=== PATIENT | male | born 1940 | race Caucasian/White ===

== ENCOUNTER 2019-03-30 08:16 | Outpatient (CLI) | payer OTHER, SELFPAY ==
--- NOTE | ~2019-03-30 | CT_ITS ---
EXAMINATION: CT chest w con DATE: 03/30/2019 09:23 INDICATION: Cancer of the lower lobe of the right lung, chest pain, cough TECHNIQUE: Transaxial computed tomographic images of the chest were obtained after the administration of 75 cc of Omnipaque 350 intravenous contrast. The dose-length product (DLP) was 333.68 mGy-cm. Ite rative reconstruction was used. COMPARISON: 09/15/2018, 10/21/2017 FINDINGS: There is mild emphysema. Postsurgical changes of right lower lobectomy are again noted. No suspicious pulmonary nodule is identified. There is a small area of unchanged scarring in the right l swathi apex. A calcified nodule of the left lung apex is consistent with old granulomatous disease. No p athologically enlarged thoracic lymph nodes are identified. The heart size is normal. There are beltrán es of coronary artery bypass grafting. There is moderate thoracic spondylosis. IMPRESSION: 1. Changes of right lower lobectomy without evidence of recurrent or metastatic disease. 2. Mild emphysema. Reviewed, dictated and finalized at location A. ITY HAND
[2019-03-30 09:15] LABS: Blood Urea Nitrogen 19 mg/dL (8-26); Estimated Glomerular Filt Rate > 60
== END 2019-03-30 08:17 | disposition home or self-care (01) ==
PROVIDERS: PCP Internal Medicine; Visit Provider Internal Medicine Hematology & Oncology
DX: C34.31 Malignant neoplasm of lower lobe, right bronchus or lung (principal); Z90.2 Acquired absence of lung [part of]; J43.9 Emphysema, unspecified
CPT/HCPCS: 71260; Q9967

== ENCOUNTER 2019-04-15 09:43 | Outpatient (CLI) | payer OTHER, SELFPAY ==
[2019-04-15 10:03] LABS: Basophils Absolute Auto 0.1 K/mm3 (0.0-0.1); Basophils Percent Auto 0.7 % (0.2-1.2); Eosinophils Absolute Auto 0.2 K/mm3 (0-0.3); Eosinophils Percent Auto 1.8 % (0-4.4); Hematocrit 40.6 % (42.0-52.0); Hemoglobin 13.3 g/dL (14.0-18.0); Immature Granulocyte Absolute 0.03 K/mm3 (0.00-0.031); Immature Granulocyte Percent A 0.4 % (0-0.5); Lymphocytes Absolute Auto 1.69 K/mm3 (0.9-3.2); Lymphocytes Percent Auto 20.4 % (18.3-44.2); Mean Corpuscular HGB Conc 32.8 g/dl (32-36); Mean Corpuscular Hemoglobin 31.1 pg (26-34); Mean Corpuscular Volume 95.1 fl (80-100); Mean Platelet Volume 9.5 fl (7.4-10.4); Monocytes Absolute Auto 0.6 K/mm3 (0.1-0.6); Neutrophils Absolute Auto 5.8 K/mm3 (1.3-6.7); Neutrophils Percent Auto 69.7 % (45.5-73.1); Platelet Count Result 215 k/mm3 (150-375); Red Blood Count 4.27 M/mm3 (4.6-6.20); Red Cell Distribution Width 12.8 % (11.5-14.5); White Blood Count 8.3 K/mm3 (4.5-10.0)
[2019-04-15 10:11] LABS: Blood Urea Nitrogen 18 mg/dL (8-26); Carbon Dioxide 28 mmol/L (22-30); Chloride 103 mmol/L (98-109); Estimated Glomerular Filt Rate > 60; Glucose 69 mg/dL (70-105); Potassium 4.2 mmol/L (3.5-4.9); Sodium 139 mmol/L (138-146)
[2019-04-15 12:24] LABS: Alanine Aminotransferase 16 U/L (4-50); Albumin Level 4.6 g/dL (3.5-5.1); Alkaline Phosphatase 103 U/L (38-126); Aspartate Amino Transferase 20 U/L (17-59); Bilirubin,Total 0.5 mg/dL (0.2-1.3); Blood Urea Nitrogen 18 mg/dL (9-20); Calcium 9.4 mg/dL (8.4-10.2); Carbon Dioxide 24 mmol/L (22-30); Chloride 98 mmol/L (98-107); Estimated Glomerular Filt Rate > 60; Glucose 67 mg/dL (75-110); Potassium 4.4 mmol/L (3.4-5.0); Sodium 140 mmol/L (137-145)
== END 2019-04-15 09:44 | disposition home or self-care (01) ==
LOC: ANHLAB 09:45
PROVIDERS: PCP Internal Medicine; Visit Provider Internal Medicine Hematology & Oncology
DX: C34.31 Malignant neoplasm of lower lobe, right bronchus or lung (principal)
CPT/HCPCS: 36415; 80048; 80053; 85025

== ENCOUNTER 2019-08-13 10:14 | Outpatient (CLI) | payer OTHER, SELFPAY ==
--- NOTE | ~2019-08-13 | MR_ITS ---
EXAMINATION: MR brain/brain stem wo con EXAM DATE: 08/13/2019 11:22 INDICATION: Dementia, alteration of awareness. TECHNIQUE: Magnetic resonance imaging (MRI) of the brain/brain stem obtained without contrast. Sagitt al T1, axial diffusion, gradient echo (T2*), T1, T2, FLAIR sequences obtained. Correlation was made with a head CT from 01/18/2018. FINDINGS: There are no areas of restricted diffusion to suggest acute infarction. There is no acute hemorrhage seen on the T2*, a hemosiderin sensitive sequence. No intraparenchymal brain mass lesion. There is mild to moderate periventricular and subcortical T2/FLAIR signal hyperintensity, nonspecifi c but probably related to small vessel ischemic disease (microangiopathy). There is mild to moderat e prominence of the sulci and ventricles related to cerebral atrophy. There are no extra-axial brandy ections. Flow voids are seen in the cerebral arteries on the T2-weighted sequences consistent with t heir expected patency. Patient has had bilateral ocular lens surgery. Soft tissue is unremarkable. Opacified right maxillary sinus with wall thickening, unchanged compared to a head CT from 2018. IMPRESSION: 1. No acute intracranial findings. 2. Chronic age related findings. Reviewed, dictated and finalized at location B.
== END 2019-08-13 10:15 | disposition home or self-care (01) ==
PROVIDERS: PCP Internal Medicine; Visit Provider Psychiatry & Neurology Neurology
DX: F03.90 Unspecified dementia, unspecified severity, without behavioral disturbance, psychotic disturbance, mood disturbance, and anxiety (principal)
CPT/HCPCS: 70551

== ENCOUNTER 2019-10-07 10:25 | Outpatient (CLI) | payer OTHER, SELFPAY ==
[2019-10-07 10:38] LABS: Basophils Percent Auto 0.6 % (0.2-1.2); Eosinophils Absolute Auto 0.1 K/mm3 (0-0.3); Eosinophils Percent Auto 2.1 % (0-4.4); Hematocrit 38.3 % (42.0-52.0); Hemoglobin 12.8 g/dL (14.0-18.0); Immature Granulocyte Absolute 0.02 K/mm3 (0.00-0.031); Immature Granulocyte Percent A 0.3 % (0-0.5); Lymphocytes Absolute Auto 1.27 K/mm3 (0.9-3.2); Lymphocytes Percent Auto 20.6 % (18.3-44.2); Mean Corpuscular HGB Conc 33.4 g/dl (32-36); Mean Corpuscular Hemoglobin 31.3 pg (26-34); Mean Corpuscular Volume 93.6 fl (80-100); Mean Platelet Volume 8.9 fl (7.4-10.4); Monocytes Absolute Auto 0.4 K/mm3 (0.1-0.6); Neutrophils Absolute Auto 4.3 K/mm3 (1.3-6.7); Neutrophils Percent Auto 69.4 % (45.5-73.1); Platelet Count Result 208 k/mm3 (150-375); Red Blood Count 4.09 M/mm3 (4.6-6.20); Red Cell Distribution Width 12.8 % (11.5-14.5); White Blood Count 6.2 K/mm3 (4.5-10.0)
[2019-10-07 10:42] LABS: Blood Urea Nitrogen 16 mg/dL (8-26); Carbon Dioxide 27 mmol/L (22-30); Chloride 100 mmol/L (98-109); Estimated Glomerular Filt Rate 58; Glucose 143 mg/dL (70-105); Potassium 4.1 mmol/L (3.5-4.9); Sodium 142 mmol/L (138-146)
[2019-10-07 12:04] LABS: Alanine Aminotransferase 14 U/L (4-50); Albumin Level 4.7 g/dL (3.5-5.1); Alkaline Phosphatase 114 U/L (38-126); Anion Gap 13 mmol/L (8-16); Aspartate Amino Transferase 20 U/L (17-59); Bilirubin,Total 0.3 mg/dL (0.2-1.3); Blood Urea Nitrogen 16 mg/dL (9-20); Calcium 9.7 mg/dL (8.4-10.2); Carbon Dioxide 26 mmol/L (22-30); Chloride 101 mmol/L (98-107); Estimated Glomerular Filt Rate > 60; Glucose 146 mg/dL (75-110); Potassium 4.2 mmol/L (3.4-5.0); Sodium 140 mmol/L (137-145)
[2019-10-08 12:09] LABS: Iron 93 ug/dL (49-181)
[2019-10-08 12:18] LABS: Percent Iron Saturation 24 % (20-50)
== END 2019-10-07 10:26 | disposition home or self-care (01) ==
PROVIDERS: PCP Internal Medicine; Visit Provider Internal Medicine Hematology & Oncology
DX: C34.31 Malignant neoplasm of lower lobe, right bronchus or lung (principal)
CPT/HCPCS: 36415; 80048; 80053; 82728; 83540; 83550; 85025

== ENCOUNTER 2020-03-28 08:32 | Outpatient (CLI) | payer OTHER, SELFPAY ==
--- NOTE | ~2020-03-28 | CT_ITS ---
EXAMINATION: CT diagnostic chest w con DATE: 03/28/2020 09:30 INDICATION: Malignant neoplasm of the lower lobe of the right lung TECHNIQUE: Transaxial computed tomographic images of the chest were obtained after the administration of 75 cc of Omnipaque 350 intravenous contrast. The dose-length product (DLP) was 200.43 mGy-cm. Ite rative reconstruction was used. COMPARISON: 03/30/2019, 09/15/2018 FINDINGS: There is mild emphysema. Changes of right lower lobectomy are again noted. A small stable a azael of scarring is present in the right lung apex. A calcified nodule of the left lung apex is consis tent with old granulomatous disease. No new pulmonary nodule is identified. The lungs are free of acu te opacities. There is no pleural effusion or pneumothorax. No pathologically enlarged thoracic lymph nodes are identified. The heart size is normal. Changes of coronary artery bypass grafting are noted . There is moderate thoracic spondylosis. IMPRESSION: 1. Stable changes of right lower lobectomy without evidence of recurrent or metastatic disease. 2. Mild emphysema. Reviewed, dictated and finalized at location A. TION PROGRAM MANAGER IMPRESSION: 1. Stable changes of right lower lobectomy without evidence of recurrent or met astatic disease. 2. Mild emphysema.
[2020-03-28 09:25] LABS: Estimated Glomerular Filt Rate > 60
== END 2020-03-28 08:33 | disposition home or self-care (01) ==
PROVIDERS: PCP Internal Medicine; Visit Provider Nurse Practitioner Adult Health
DX: C34.31 Malignant neoplasm of lower lobe, right bronchus or lung (principal); J43.9 Emphysema, unspecified
CPT/HCPCS: 71260; Q9967

== ENCOUNTER 2020-04-06 09:57 | Outpatient (CLI) | payer OTHER, SELFPAY ==
[2020-04-06 10:17] LABS: Basophils Percent Auto 0.4 % (0.2-1.2); Eosinophils Absolute Auto 0.1 K/mm3 (0-0.3); Eosinophils Percent Auto 1.9 % (0-4.4); Hematocrit 39.7 % (42.0-52.0); Immature Granulocyte Absolute 0.02 K/mm3 (0.00-0.031); Immature Granulocyte Percent A 0.3 % (0-0.5); Lymphocytes Absolute Auto 1.37 K/mm3 (0.9-3.2); Lymphocytes Percent Auto 18.7 % (18.3-44.2); Mean Corpuscular HGB Conc 32.7 g/dl (32-36); Mean Corpuscular Hemoglobin 30.5 pg (26-34); Mean Corpuscular Volume 93.2 fl (80-100); Mean Platelet Volume 9.4 fl (7.4-10.4); Monocytes Absolute Auto 0.6 K/mm3 (0.1-0.6); Monocytes Percent Auto 7.8 % (2.6-8.5); Neutrophils Absolute Auto 5.2 K/mm3 (1.3-6.7); Neutrophils Percent Auto 70.9 % (45.5-73.1); Platelet Count Result 220 k/mm3 (150-375); Red Blood Count 4.26 M/mm3 (4.6-6.20); Red Cell Distribution Width 12.7 % (11.5-14.5); White Blood Count 7.3 K/mm3 (4.5-10.0)
[2020-04-06 10:20] LABS: Blood Urea Nitrogen 13 mg/dL (8-26); Carbon Dioxide 28 mmol/L (22-30); Chloride 100 mmol/L (98-109); Estimated Glomerular Filt Rate 58; Glucose 154 mg/dL (70-105); Potassium 4.5 mmol/L (3.5-4.9); Sodium 138 mmol/L (138-146)
[2020-04-06 13:14] LABS: Iron 78 ug/dL (49-181)
[2020-04-06 13:17] LABS: Alanine Aminotransferase 13 U/L (4-50); Albumin Level 4.4 g/dL (3.5-5.1); Alkaline Phosphatase 143 U/L (38-126); Anion Gap 13 mmol/L (8-16); Aspartate Amino Transferase 19 U/L (17-59); Bilirubin,Total 0.5 mg/dL (0.2-1.3); Blood Urea Nitrogen 14 mg/dL (9-20); Calcium 9.5 mg/dL (8.4-10.2); Carbon Dioxide 26 mmol/L (22-30); Chloride 100 mmol/L (98-107); Estimated Glomerular Filt Rate > 60; Glucose 155 mg/dL (75-110); Potassium 4.6 mmol/L (3.4-5.0); Sodium 139 mmol/L (137-145)
[2020-04-06 13:24] LABS: Percent Iron Saturation 20 % (20-50)
[2020-04-06 14:21] LABS: Folic Acid 14.9 ng/mL (2.76->20)
[2020-04-09 15:11] LABS: Methylmalonic Acid 148 nmol/L (87-318)
== END 2020-04-06 09:58 | disposition home or self-care (01) ==
LOC: ANHLAB 09:58
PROVIDERS: PCP Internal Medicine; Visit Provider Internal Medicine Hematology & Oncology
DX: C34.31 Malignant neoplasm of lower lobe, right bronchus or lung (principal); D64.9 Anemia, unspecified
CPT/HCPCS: 36415; 80048; 80053; 82607; 82746; 83540; 83550; 83921; 85025

== ENCOUNTER 2021-01-31 12:34 | Outpatient (CLI) | payer OTHER, SELFPAY ==
--- NOTE | ~2021-01-31 | XR_ITS ---
XR shoulder RT min 2V 01/31/2021 13:01 Indication: Shoulder pain Procedure: 4 views right shoulder Comparison: No prior studies for comparison. Findings: There is mild polyarticular osteoarthritis of the right shoulder. No fracture or traumatic malalignment. Surrounding osseous structures and soft tissues are unremarkable. Impression: 1: Mild osteoarthritis of the right shoulder. Reviewed, dictated and finalized at location A. ALS INTELLIGENCE ANALYSIS MANAGER Impression: 1: Mild osteoarthritis of the right shoulder.
--- NOTE | ~2021-01-31 | XR_ITS ---
XR shoulder LT min 2V 01/31/2021 13:02 Indication: Left shoulder pain Procedure: 4 views left shoulder Comparison: No prior studies for comparison. Findings: There is advanced glenohumeral joint osteoarthritis. Mild acromioclavicular osteoarthritis. There are calcified granulomas of the lung parenchyma. No acute fracture or traumatic malalignment. Small ossific projection adjacent to the greater tuberosity, likely sequela of calcific tendinopathy. Impression: 1: Mild-moderate polyarticular osteoarthritis of the left shoulder. Reviewed, dictated and finalized at location A. TECHNICIAN Impression: 1: Mild-moderate polyarticular osteoarthritis of the left shoulder.
== END 2021-01-31 12:35 | disposition home or self-care (01) ==
LOC: CHSIMG 12:37
PROVIDERS: PCP Nurse Practitioner Family; Visit Provider Nurse Practitioner Family
DX: M25.511 Pain in right shoulder (principal); M25.512 Pain in left shoulder
CPT/HCPCS: 73030

== ENCOUNTER 2021-05-31 11:42 | Outpatient (NON) | payer OTHER, SELFPAY ==
[2021-05-31 11:58] LABS: Basophils Absolute Auto 0.06 K/mm3 (0.00-0.10); Basophils Percent Auto 0.6 % (0.0-1.0); Eosinophils Absolute Auto 0.22 K/mm3 (0.02-0.50); Eosinophils Percent Auto 2.3 % (1.0-6.0); Hematocrit 39.5 % (37.0-46.0); Hemoglobin 12.9 g/dL (12.4-15.3); Immature Granulocyte Absolute 0.04 K/mm3 (0.00-0.00); Immature Granulocyte Percent A 0.4 % (0.0-0.0); Lymphocytes Percent Auto 13.6 % (18.0-42.0); Mean Corpuscular HGB Conc 32.7 g/dL (32.0-36.0); Mean Corpuscular Hemoglobin 32.5 pg (27.0-31.0); Mean Corpuscular Volume 99.5 fL (78.0-102.0); Mean Platelet Volume 11.6 fl (8.7-11.0); Monocytes Absolute Auto 0.86 K/mm3 (0.10-0.90); Neutrophils Absolute Auto 7.1 K/mm3 (1.7-7.2); Neutrophils Percent Auto 74.1 % (50.0-70.0); Platelet Count Result 225 K/mm3 (150-420); Red Blood Count 3.97 M/mm3 (4.70-6.10); Red Cell Distribution Width 13.8 % (11.6-14.4); White Blood Count 9.6 K/mm3 (4.8-10.8)
[2021-05-31 13:14] LABS: Alanine Aminotransferase 17 U/L (16-63); Albumin Level 4.2 g/dL (3.4-5.0); Alkaline Phosphatase 139 U/L (46-116); Anion Gap 16 mmol/L (8-16); Aspartate Amino Transferase 13 U/L (15-37); Bilirubin,Total 0.4 mg/dL (0.00-1.00); Blood Urea Nitrogen 18 mg/dL (7-18); Calcium 9.3 mg/dL (8.5-10.1); Carbon Dioxide 24 mmol/L (21-32); Chloride 99 mmol/L (98-108); Estimated Glomerular Filt Rate > 60; Glucose 125 mg/dL (70-99); Osmolality Calculated 290 mOsm/kg (285-295); Potassium 4.6 mmol/L (3.5-5.1); Sodium 139 mmol/L (136-145); Total Protein 7.6 g/dL (6.4-8.2); Vitamin B12 908 pg/mL (193-986)
[2021-05-31 13:17] LABS: Magnesium 0.9 mg/dL (1.8-2.4)
[2021-06-05 18:03] LABS: Vitamin D 25 Hydroxy 30 ng/mL (30-100)
== END 2021-05-31 11:43 | disposition home or self-care (01) ==
LOC: CHSLAB 11:44
PROVIDERS: Visit Provider Nurse Practitioner Family
DX: R41.0 Disorientation, unspecified (principal); Z79.899 Other long term (current) drug therapy
CPT/HCPCS: 36415; 80053; 82306; 82607; 83735; 85025

== ENCOUNTER 2021-05-31 14:12 | Observation (INO) | payer OTHER, SELFPAY ==
[2021-05-31] VITALS (25 sets, daily range): BP systolic 90–138; BP diastolic 54–84; PULSE 80–114; RESP 16–18; TEMP 36.4; O2SAT 95–100; BMI 20.4
--- NOTE | ~2021-05-31 | MR_ITS ---
EXAMINATION: MR brain/brain stem wo con DATE: 06/02/2021 11:36 INDICATION: Stroke. Confusion. TECHNIQUE: Magnetic resonance imaging (MRI) of the brain and brainstem was performed without intraven ous contrast. COMPARISON: Brain MRI 08/13/2019, head CT 05/31/2021 FINDINGS: There are scattered areas of nonspecific increased T2-weighted signal intensity in the cere bral white matter and michael. There is no intracranial hemorrhage, acute infarction, or abnormal intrac ranial mass lesion. The ventricles are normal in size. There are likely changes of ocular lens replac ement surgeries. There is mucosal thickening in the paranasal sinuses including complete opacificatio n of right maxillary sinus, which is small with thickened maurer, consistent with chronic sinusitis. T he mastoid air cells are normal. IMPRESSION: 1. Stable moderate nonspecific cerebral white matter disease and pontine disease, which likely repres ents chronic small vessel ischemic disease. 2. Chronic sinusitis. Reviewed, dictated and finalized at location A. IMPRESSION: 1. Stable moderate nonspecific cerebral white matter disease and pontine diseas e, which likely represents chronic small vessel ischemic disease. 2. Chronic sinusitis.
--- NOTE | ~2021-05-31 | MR_ITS ---
EXAMINATION: MR cervical spine wo con EXAM DATE: 06/05/2021 12:19 INDICATION: Left-sided weakness. TECHNIQUE: Multi-sequential, multiplanar MR images of the cervical spine were obtained without contra st. Sagittal T1, T2, T2 fat saturation images obtained. Patient reportedly declined holding still for examination. Study is limited due to patient motion. There is no prior study for comparison. FINDINGS: There is moderate disc disease C3-4, 5-6 and 6-7, mild to moderate at C4-5. The vertebral b odies are aligned in the AP dimension. Small to moderate-sized disc bulges from C3 through C7. At the C3-4 level being slightly indented from posterior element hypertrophy and disc bulge, central canal appears to be narrowed to 5-6 mm in mid sagittal AP diameter, mild to moderate stenosis. There is no suspicion of cord edema. This is most narrowed level. There could be substantial multilevel neural fo raminal stenosis. Cervicomedullary junction is normal in appearance. There are no suspicious marrow s ignal abnormalities. The vertebral bodies are aligned in the AP dimension. IMPRESSION: 1. C3-4 mild to moderate central canal stenosis, cord slightly indented but no edema, no acute compr ession. 2. Limited exam, probable substantial neural foraminal stenosis. Reviewed, dictated and finalized at location A. IMPRESSION: 1. C3-4 mild to moderate central canal stenosis, cord slightly indented but no edema, no acute compression. 2. Limited exam, probable substantial neural foraminal stenosis.
--- NOTE | ~2021-05-31 | XR_ITS ---
EXAMINATION: XR chest 1V portable DATE: 06/02/2021 09:10 INDICATION: Cough. TECHNIQUE: A single frontal view of the chest was obtained on 2 radiographs. COMPARISON: Chest single view 01/18/2018, chest CT 03/28/2020 FINDINGS: There is volume loss of right lung from right lower lobectomy. Calcified pulmonary nodules are consistent with old granulomatous disease. Skinfolds overlie left hemithorax. There are lucencies in the lungs, consistent with emphysema. There is mild atelectasis at right lung base. No pleural ef fusion or pneumothorax. The heart size is normal. Median sternotomy wires and mediastinal surgical cl ips are seen, likely from prior coronary artery bypass grafting. IMPRESSION: 1. Worsened mild atelectasis at right lung base. 2. Emphysema. Reviewed, dictated and finalized at location A.
--- NOTE | ~2021-05-31 | CT_ITS ---
EXAMINATION: CT brain wo con DATE: 05/31/2021 15:08 INDICATION: Frequent falls. Confusion. TECHNIQUE: Computed tomography (CT) of the head was performed without intravenous contrast. The mA wa s adjusted according to patient size. Iterative reconstruction technique was employed. Exam dose: 13 62.00 mGy-cm total exam DLP. COMPARISON: 08/13/2019 MRI brain/brainstem 01/18/2018 CT brain FINDINGS: The examination is limited by motion artifact. There is calcified cerebral atherosclerosis. There is nonspecific diminished attenuation of the cereb ral white matter, likely due to chronic small vessel ischemic changes. No intracranial mass lesion or hemorrhage or recent cerebrovascular accident is detected. No midline shift or mass effects. Moderate cerebellar and cerebral volume loss. No subdural or epidural hematoma. The right maxillary sinus is completely opacified. The paranasal sinuses and mastoid air cells are ot herwise unremarkable. No fracture or bone destruction of the cranial vault is evident. IMPRESSION: Opacified right maxillary sinus Cerebellar and cerebral volume loss Cerebral atherosclerosis and chronic small vessel ischemic changes of the cerebral white matter No acute intracranial finding Reviewed, dictated and finalized at Location A. Reviewed, dictated and finalized at location A. IMPRESSION: Opacified right maxillary sinus Cerebellar and cerebral volume loss Cerebral atherosclerosis and chronic small vessel ischemic changes of the cereb ral white matter No acute intracranial finding
--- NOTE | 2021-05-31 14:22 | ECG_ITS ---
Measurements Intervals [place] Rate: 96 P: 83 WI: 143 QRS: 69 QRSD: 103 T: 89 QT: 345 QTc: 438 Interpretive Statements SINUS RHYTHM WITH OCCASIONAL PREMATURE VENTRICULAR COMPLEXES INTRAVENTRICULAR CONDUCTION DELAY NONSPECIFIC ST AND T-WAVE ABNORMALITY ABNORMAL ECG NO PREVIOUS ECG AVAILABLE FOR COMPARISON Electronically Signed On 05-31-2021 16:40:38 CDT by Pierre Goodman M.D.
[2021-05-31 14:49] LABS: Basophils Absolute Auto 0.03 K/mm3 (0.00-0.10); Basophils Percent Auto 0.4 % (0.0-1.0); Eosinophils Absolute Auto 0.12 K/mm3 (0.02-0.50); Eosinophils Percent Auto 1.6 % (1.0-6.0); Hematocrit 36.4 % (37.0-46.0); Immature Granulocyte Absolute 0.03 K/mm3 (0.00-0.00); Immature Granulocyte Percent A 0.4 % (0.0-0.0); Lymphocytes Absolute Auto 1.28 K/mm3 (1.10-4.50); Lymphocytes Percent Auto 17.4 % (18.0-42.0); Mean Corpuscular Hemoglobin 32.6 pg (27.0-31.0); Mean Corpuscular Volume 98.9 fL (78.0-102.0); Mean Platelet Volume 9.6 fl (8.7-11.0); Monocytes Absolute Auto 0.77 K/mm3 (0.10-0.90); Monocytes Percent Auto 10.5 % (2.0-11.0); Neutrophils Absolute Auto 5.1 K/mm3 (1.7-7.2); Neutrophils Percent Auto 69.7 % (50.0-70.0); Platelet Count Result 213 K/mm3 (150-420); Red Blood Count 3.68 M/mm3 (4.70-6.10); Red Cell Distribution Width 13.7 % (11.6-14.4); White Blood Count 7.4 K/mm3 (4.8-10.8)
--- NOTE | 2021-05-31 14:55 | PC.NURSE ---
Pt off floor to CT scan
[2021-05-31 15:00] LABS: INR 1.1; Partial Thromboplastin Time 26.8 SEC (23.90-30.70)
--- NOTE | 2021-05-31 15:05 | PC.NURSE ---
Pt returned from CT at this time.
[2021-05-31 15:10] LABS: Lactic Acid Reflex 3.2 mmol/L (0.4-2.0)
[2021-05-31 15:11] LABS: Alanine Aminotransferase 16 U/L (16-63); Albumin Level 3.9 g/dL (3.4-5.0); Alkaline Phosphatase 122 U/L (46-116); Anion Gap 14 mmol/L (8-16); Aspartate Amino Transferase 11 U/L (15-37); Bilirubin,Total 0.3 mg/dL (0.00-1.00); Blood Urea Nitrogen 21 mg/dL (7-18); Calcium 9.1 mg/dL (8.5-10.1); Carbon Dioxide 24 mmol/L (21-32); Chloride 99 mmol/L (98-108); Creatine Kinase 34 U/L (39-308); Estimated CRCL calculation 49 ml/min; Estimated Glomerular Filt Rate > 60; Glucose 123 mg/dL (70-99); Osmolality Calculated 288 mOsm/kg (285-295); Potassium 4.3 mmol/L (3.5-5.1); Sodium 137 mmol/L (136-145); Thyroid Stimulating Hormone 0.99 uIU/mL (0.36-3.74); Total Protein 7.4 g/dL (6.4-8.2)
[2021-05-31] MEDS: LORazepam INJ (*CRX) 2 MG/ML VIAL 1 MG IV PUSH ×2 (15:24→15:48)
--- NOTE | 2021-05-31 15:27 | PC.NURSE ---
Pt agitated and aggressive at this time. Kicking, hitting, pinching, yelling at staff with obscenities. MD at bedside, ativan given at this time.
[2021-05-31 15:31] LABS: Magnesium 0.8 mg/dL (1.8-2.4)
--- NOTE | 2021-05-31 15:31 | PC.NURSE ---
Unable to straight cath at this time due to aggressive behavior. aware
--- NOTE | 2021-05-31 15:32 | PC.NURSE ---
Unable to obtain urine sample at this time due to pt's violent behavior. Pt swinging monitoring equipment at staff and attempting to hit, pinch, and kick staff. Pt grabs staff and threatens to break your hands in a million pieces! . Pt cursing at staff, calling us fucking Mexicans and fat wobbly bitches . Pt paranoid and keeps saying staff is in a million dollar operation and trying to kill him. Pt talking to people who are not in the room. Pt medicated per ERP order. Waiting for pt to calm down before attempting to obtain urine again.
--- NOTE | 2021-05-31 15:34 | ED.AMS ---
HPI - Altered Mental Status General Chief Complaint: Altered Mental Status Stated Complaint: amb Time Seen by Provider: 05/31/21 14:35 Source: patient and EMS Mode of arrival: EMS Limitations: altered mental status and dementia History of Present Illness HPI narrative: this an 80-year-old gentleman from [facility] that presents with some altered mental status, agitation with a history of dementia, diabetes. The patient had blood work done which showed that he had abnormally low magnesium level, has a history of dementia with behavioral issues and recently had his Seroquel adjusted. Patient is verbally and physically aggressive kicking and swearing. There is currently no fever chills vital signs are stable denies any chest pain or shortness of breath no abdominal pain. MD complaint: altered mental status and confusion Onset (ago): hour(s) Timing confirmed by: caregiver Severity: moderate Consistency of symptoms: getting Worse Related Data Home Medications Medication Instructions Recorded Confirmed aspirin 81 mg tablet,delayed 81 mg PO DAILY 01/18/19 05/31/21 release nitroglycerin 0.4 mg sublingual 0.4 mg SUBLINGUAL Q5M PRN 01/18/19 05/31/21 tablet divalproex 250 mg PO DAILY 05/31/21 05/31/21 folic acid 1 mg PO DAILY 05/31/21 05/31/21 lisinopril 5 mg PO DAILY 05/31/21 05/31/21 metoprolol succinate 50 mg PO DAILY 05/31/21 quetiapine 25 mg tablet 25 mg PO BID PRN 05/31/21 05/31/21 Allergies Allergy/AdvReac Type Severity Reaction Status Date / Time bacitracin Allergy Unknown Unknown Verified 05/31/21 14:49 baclofen Allergy Unknown Delerium Verified 05/31/21 14:49 benzalkonium chloride Allergy Unknown BLISTERS Verified 05/31/21 14:49 egg Allergy Unknown Unknown Verified 05/31/21 14:49 gramicidin D Allergy Unknown BLISTERS Verified 05/31/21 14:49 hydrocortisone Allergy Unknown BLISTERS Verified 05/31/21 14:49 Penicillins Allergy Unknown Unknown Verified 05/31/21 14:49 polymyxin B Allergy Unknown Unknown Verified 05/31/21 14:49 strawberry Allergy Unknown Unknown Verified 05/31/21 14:49 Sulfa (Sulfonamide Allergy Unknown Unknown Verified 05/31/21 14:49 Antibiotics) BACITRACIN ZINC Allergy Unknown BLISTERS Uncoded 05/31/21 14:49 NEOMYCIN SULFATE Allergy Unknown BLISTERS Uncoded 05/31/21 14:49 POLYMYXIN B SULFATE Allergy Unknown BLISTERS Uncoded 05/31/21 14:49 Contrast Media AdvReac Unknown Nausea, Uncoded 05/31/21 14:49 RETCHING Review of Systems Review of Systems: All systems reviewed & are unremarkable except as noted in HPI and below PMFSH Past Medical History Medical History (Updated 05/31/21 @ 16:05 by Nakul Mendoza MD) Adverse effect due to correct medicinal substance, properly given Alzheimer's dementia 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 Atherosclerosis of coronary artery bypass graft with unstable angina pectoris Atherosclerosis of coronary artery bypass graft(s) without angina pectoris Atherosclerosis of [place] artery of left lower extremity Malignant neoplasm of lower lobe, unspecified bronchus or lung Family History Family History Mother Family history of congenital heart disease Cerebrovascular accident Father Family history of chronic obstructive pulmonary disease Family history of lung cancer Sibling Family history of heart disease in male family member before age 55 Other Asthma Diabetes mellitus Social History Social History Smoking status: Former smoker Second hand tobacco smoke exposure: No Smoking end date: 02/18/08 Alcohol intake: current Drinks per week: 1 Alcohol use details: mixed drinks, rarely Substance use: never Exam Const: General: no acute distress Orientation/consciousness: patient oriented x3 HENMT: Head: normal to inspection Eyes: Conjunctivae: conjunctivae normal Pupils: Equal
--- NOTE | 2021-05-31 15:35 | PC.NURSE ---
This RN called Power of Director, Iman Winters, daughter ([phone]). Originally unable to reach. Spoke with Antonia Smyth, construction code administrator at [facility] ) to confirm patient's code status. Antonia to send [facility] paperwork via fax. OF NOTE -- PER ANTONIA, [facility] WILL NOT ACCEPT PATIENT BACK TO THEIR FACILITY UNTIL CLEARED BY A [facility] SUPERVISING LAW ENFORCEMENT ANALYST. Per Antonia, [facility] is assisted living and does not provide the level of care this patient currently requires. Spoke with Iman Winters ([facility] rey). Confirmed that patient is a DNR. Informed daughter that [facility] will not accept patient back in this condition. Reviewed current plan of care and informed patient will be admitted at [place] for at least one night. Daughter verbalized understanding. Reviewed paperwork regarding code status with Dr Mendoza.
--- NOTE | 2021-05-31 15:52 | PC.NURSE ---
Pt remains agitated, multiple continuous attempts to get OOB. Unable to redirect, remains compative. Additional dose of Ativan administered.
--- NOTE | 2021-05-31 16:20 | PC.NURSE ---
Pt incontinent of urine. Full linen and brief change.
[2021-05-31] MEDS: MAGNESIUM SULF 4 GM/WATER100ML 4 GM/100 ML BAG IVPB (16:23)
--- NOTE | 2021-05-31 16:28 | PC.NURSE ---
Pt straight cath'd for 400 cc clear yellow urine. Some trauma noted to meatus after cath, small amount of blood to tip of penis after catheter removal.
[2021-05-31 16:32] LABS: Add Urine Microscopic? YES; Appearance Urine Clear (Clear); Bilirubin Urine Negative (Negative); Blood Urine 3+ (Negative); Color Urine Light Yellow (Yellow); Glucose Urine UA Negative (Negative); Ketones Urine Negative (Negative); Leukocyte Esterase Ur Negative (Negative); Nitrate Urine Negative (Negative); Protein Urine Negative (Negative); Specific Grav Ur <= 1.005 (1.010-1.020); Urobilinogen Urine 0.2 mg/dL (0.2-1.0)
[2021-05-31 16:35] LABS: Bacteria Urine None seen /hpf; Squamous Epithelial Cell Urine Rare /hpf (Few); WBC Urine None seen /hpf (0-3)
--- NOTE | 2021-05-31 16:35 | PC.NURSE ---
Pt resting comfortably. VSS. Will continue to monitor.
--- NOTE | 2021-05-31 17:06 | PC.NURSE ---
Confirmed with Dr Mendoza. Pt urinalysis clear, WBC WNL. No signs of infection at this time. OK to discontinue levofloxacin
[2021-05-31 17:45] LABS: Reflex Lactic Acid Yes or No Add Lactic
--- NOTE | 2021-05-31 18:03 | ADMGEN ---
This patient, Alec Winters, was admitted to 2nd Floor Room 207-2. Patient/family oriented to hospital policies and general routines including ID bracelet, bed and alarms, visiting hours, pain management, procedures, bathroom and other care routines, personal items, smoking policy, room service/diet, and visiting hours. Reported from er nurse that the [facility] found pt outside attempting to defecate on the sidewalk. At his current state of dementia they will not accept him back until an it administrator has come to evaluate him first. Poa notified of this by er nurse christin. Christin reports he was pleasantly confused until going for a ct/receiving lab draws; after which he became combative. Pt reported to have kicked er nursing staff and twisted wrists. Bed alarms turned on, iv has coban around site, rails up. Pt is drowsy due to medicines given in er, briefly awakens to transfer from stretcher to bed by nurses. Belongings in bags brought up from er. Information on how to activate the Rapid Response Team has been discussed. Patient/Family are encouraged to report perceived risks to care and to ask questions if they do not understand what they are told or what they should do.
[2021-05-31 18:54] LABS: Lactic Acid 1.3 mmol/L (0.4-2.0)
[2021-05-31] MEDS: LORazepam INJ (*CRX) 2 MG/ML VIAL IV PUSH (20:52)
[2021-05-31] MEDS: QUEtiapine FUMARATE 25 MG TABLET PO (20:55)
[2021-06-01 05:31] LABS: Basophils Absolute Auto 0.03 K/mm3 (0.00-0.10); Basophils Percent Auto 0.5 % (0.0-1.0); Eosinophils Absolute Auto 0.15 K/mm3 (0.02-0.50); Eosinophils Percent Auto 2.4 % (1.0-6.0); Hematocrit 35.2 % (37.0-46.0); Hemoglobin 11.5 g/dL (12.4-15.3); Immature Granulocyte Absolute 0.03 K/mm3 (0.00-0.00); Immature Granulocyte Percent A 0.5 % (0.0-0.0); Lymphocytes Absolute Auto 1.13 K/mm3 (1.10-4.50); Lymphocytes Percent Auto 18.3 % (18.0-42.0); Mean Corpuscular HGB Conc 32.7 g/dL (32.0-36.0); Mean Corpuscular Hemoglobin 31.9 pg (27.0-31.0); Mean Corpuscular Volume 97.5 fL (78.0-102.0); Mean Platelet Volume 9.3 fl (8.7-11.0); Monocytes Absolute Auto 0.71 K/mm3 (0.10-0.90); Monocytes Percent Auto 11.5 % (2.0-11.0); Neutrophils Absolute Auto 4.1 K/mm3 (1.7-7.2); Neutrophils Percent Auto 66.8 % (50.0-70.0); Platelet Count Result 188 K/mm3 (150-420); Red Blood Count 3.61 M/mm3 (4.70-6.10); Red Cell Distribution Width 13.5 % (11.6-14.4); White Blood Count 6.2 K/mm3 (4.8-10.8)
[2021-06-01 05:38] LABS: Anion Gap 12 mmol/L (8-16); Blood Urea Nitrogen 15 mg/dL (7-18); Calcium 8.6 mg/dL (8.5-10.1); Carbon Dioxide 27 mmol/L (21-32); Chloride 99 mmol/L (98-108); Estimated CRCL calculation 57 ml/min; Estimated Glomerular Filt Rate > 60; Glucose 102 mg/dL (70-99); Magnesium 1.6 mg/dL (1.8-2.4); Osmolality Calculated 286 mOsm/kg (285-295); Potassium 3.8 mmol/L (3.5-5.1); Sodium 138 mmol/L (136-145)
--- NOTE | 2021-06-01 07:58 | PCPTNOTE ---
06/01/21 - attempted to evaluate patient this morning, but he is not cooperative. he is difficult to understand as he has low speaking volume and runs words together. he is not willing to try to move legs or sit up on the edge of bed this date. suggest patient seek detention home care if cooperation and presentation does not improve. JTF
[2021-06-01 08:00] VITALS: BP 152/73; PULSE 98; RESP 16; TEMP 36.1; O2SAT 99
[2021-06-01] MEDS: LORazepam INJ (*CRX) 2 MG/ML VIAL IV PUSH (08:29)
--- NOTE | 2021-06-01 09:25 | PM.IMHP ---
H&P: HPI History of Present Illness Date/Time: 06/01/21 09:25 This is a 80-year-old male with a past medical history of cardiomyopathy, coronary artery disease, hypertension, diabetes, hyperlipidemia, history of lung cancer in the right lower lobe, had a right lobectomy, status post coronary artery placement with 1 stent in 2012, and angioplasty as well. Patient presented to the emergency room with increased confusion agitation and some hallucinations. Patient lives at assisted living as he had went outside and defecated on the sidewalk patient has had several falls over the past few days. Patient is also seen at the [facility] for his [facility]. Patient's labs ultimately were insignificant except for his magnesium was 0.8. According to medical records after reviewing as patient is unable to give me a good history as he is belligerent he or his cancer is in remission. We will replenish his magnesium and attempt to get him into a psychiatric center [facility] 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 Atherosclerosis of coronary artery bypass graft with unstable angina pectoris Atherosclerosis of coronary artery bypass graft(s) without angina pectoris Atherosclerosis of [place] artery of left lower extremity Malignant neoplasm of lower lobe, unspecified bronchus or lung Family History Family History Mother Family history of congenital heart disease Cerebrovascular accident Father Family history of chronic obstructive pulmonary disease Family history of lung cancer Sibling Family history of heart disease in male family member before age 55 Other Asthma Diabetes mellitus Social History Social History Smoking status: Unknown if ever smoked Second hand tobacco smoke exposure: No Smoking end date: 02/18/08 Alcohol intake: unknown Drinks per week: 1 Alcohol use details: mixed drinks, rarely Substance use: unknown Substance use type: unknown Spiritual care concerns: No Comments At time as signature, I have reviewed and agree with nursing past medical, social, surgical and family history. Please see nursing chart for further information. There is no relevant family history pertinent to the presenting complaint. Meds Home Medications and Allergies Home Medications Medication Instructions Recorded Confirmed Type aspirin 81 mg tablet,delayed 81 mg PO DAILY 01/18/19 05/31/21 History release nitroglycerin 0.4 mg sublingual 0.4 mg SUBLINGUAL Q5M PRN 01/18/19 05/31/21 History tablet atorvastatin 80 mg tablet 80 mg PO DAILY #90 tablet 10/27/19 05/31/21 Rx metformin 500 mg tablet 1,000 mg PO BID #180 tablet 06/30/20 05/31/21 Rx umeclidinium 62.5 mcg-vilanterol 1 inh INHALATION DAILY #60 ea 11/21/20 05/31/21 Rx 25 mcg/actuation powdr for inhalation quetiapine 25 mg tablet 25 mg PO QHS #90 tablet 01/31/21 05/31/21 Rx divalproex 250 mg PO DAILY 05/31/21 05/31/21 History folic acid 1 mg PO DAILY 05/31/21 05/31/21 History lisinopril 5 mg PO DAILY 05/31/21 05/31/21 History metoprolol succinate 50 mg PO DAILY 05/31/21 05/31/21 History quetiapine 25 mg tablet 25 mg PO BID PRN 05/31/21 05/31/21 History Allergies Allergy/AdvReac Type Severity Reaction Status Date / Time bacitracin Allergy Unknown Unknown Verified 05/31/21 14:49 baclofen Allergy Unknown Delerium Verified 05/31/21 14:49 benzalkonium chloride Allergy Unknown BLISTERS Verified 05/31/21 14:49 egg Allergy Unknown Unknown Verified 05/31/21 14:49 gramicidin D Allergy Unknown
[2021-06-01] MEDS: lisinopriL 5 MG TABLET PO (09:38)
[2021-06-01 09:39] VITALS: PULSE 88
[2021-06-01] MEDS: ASPIRIN 81 MG ENTERIC TABLET PO (09:39)
[2021-06-01] MEDS: METOPROLOL SUCCINATE EXT REL 50 MG TABCR PO (09:39)
[2021-06-01] MEDS: DIVALPROEX SODIUM ER 250 MG TAB.24H PO (09:40)
[2021-06-01] MEDS: FOLIC ACID 1 MG TABLET PO (09:40)
[2021-06-01] MEDS: ATORVASTATIN 40 MG TABLET 80 MG PO (09:41)
[2021-06-01 10:05] LABS: Troponin I 8.4 ng/L (0.00-60.4)
[2021-06-01 10:18] LABS: Amphetamine Screen Urine Negative (Negative); Barbiturate Screen Urine Negative (Negative); Benzodiazepines Screen Urine Negative (Negative); Cannabinoid Screen Urine Negative (Negative); Cocaine Screen Urine Negative (Negative); Methadone Screen Urine Negative (Negative); Opiate Screen Urine Negative (Negative); Phencyclidine Screen Urine Negative (Negative)
[2021-06-01 10:55] LABS: SARS-CoV-2 RNA PCR Negative (Negative)
[2021-06-01 11:52] LABS: Glucose Point of Care 99 mg/dl (65-105)
[2021-06-01] MEDS: MAGNESIUM SULF 2 GM/WATER 50ML 2 GM/50 ML BAG 50 GM (13:50)
[2021-06-01] MEDS: MAGNESIUM SULF 2 GM/WATER 50ML 2 GM/50 ML BAG IVPB (13:53)
--- NOTE | 2021-06-01 14:15 | PC.NURSE ---
Addendum entered by Ayde Mckinnon, RN 06/01/21 14:55: Provided # for emergency notification call center to call to ensure hospital receives payment. #[phone] Original Note: [facility]oke [facility]. States that the [facility] cannot take patient due to mag levels and possibility of CA mets to brain. Feel that patient needs further medical work up before can admit to psych facility. [facility]. conference service coordinator and Maureen PANIAGUA notified.
[2021-06-01 15:49] LABS: Magnesium 2.1 mg/dL (1.8-2.4)
[2021-06-01 16:30] VITALS: BP 131/58; PULSE 93; RESP 18; TEMP 36.9; O2SAT 97
--- NOTE | 2021-06-01 18:00 | ECG_ITS ---
Measurements Intervals [place] Rate: 96 P: 80 DC: 149 QRS: 63 QRSD: 88 T: 83 QT: 331 QTc: 419 Interpretive Statements SINUS RHYTHM NONSPECIFIC ST ABNORMALITY BORDERLINE ECG COMPARED TO ECG 05/31/2021 14:50:28 PVCS ARE NO LONGER SEEN Electronically Signed On 06-02-2021 11:38:44 CDT by Pierre Goodman M.D.
[2021-06-01 18:33] LABS: Glucose Point of Care 111 mg/dl (65-105)
[2021-06-01 20:57] LABS: Glucose Point of Care 121 mg/dl (65-105)
[2021-06-01] MEDS: QUEtiapine FUMARATE 25 MG TABLET PO (21:10)
[2021-06-01 23:02] VITALS: BP 149/71; PULSE 97; RESP 24; TEMP 36.6; O2SAT 96
--- NOTE | 2021-06-02 01:10 | PC.NURSE ---
This technical proposal writer attempted to place a pillow under Niles's L side to help prevent a sore and the pt would not allow this intervention to be done. Niles attempted to smack this technical proposal writer and this technical proposal writer had to reorient the pt and explain why it is important to alternating sides. Niles still did not want to cooperate, but was instructed that combativeness is not allowed/okay. Charge nurse was notified of findings.
--- NOTE | 2021-06-02 05:37 | PC.NURSE ---
Pt had an incontinent void. This publicity writer and the charge nurse, Hanna, had removed/changed the pt's depend and cleansed the area with a hygiene wipe. Pt did allow turning in order to clean him, but did not handle it well. Once the pt was returned to supine position he calmed back down showing no agitation. Call light placed within reach; bed alarm and night light on; side rails x3; soiled linens bag removed/replaced.
[2021-06-02 07:22] VITALS: BP 135/71; PULSE 97; RESP 20; TEMP 36.6; O2SAT 96
[2021-06-02 07:35] LABS: Glucose Point of Care 121 mg/dl (65-105)
[2021-06-02] MEDS: ACETAMINOPHEN 325 MG TABLET 650 MG PO (08:19)
[2021-06-02] MEDS: ASPIRIN 81 MG ENTERIC TABLET PO (08:22)
[2021-06-02] MEDS: FOLIC ACID 1 MG TABLET PO (08:22)
[2021-06-02] MEDS: UMECLIDINIUM/VILANTEROL 62.5-25 MCG ELLIPTA 1 PUFF INHALATION (08:22)
[2021-06-02] MEDS: lisinopriL 5 MG TABLET PO (08:26)
[2021-06-02] MEDS: LORazepam INJ (*CRX) 2 MG/ML VIAL IV PUSH (10:51)
--- NOTE | 2021-06-02 11:22 | PM.IMPN ---
Progress Note: A&P Assessment and Plan (1) Hypomagnesemia: Code(s): E83.42 - Hypomagnesemia Status: Acute Assessment and Plan: inital 0.8 IV magnesium Current mag level 1.6 Additonal IV mag given current level 2.1 (2) Dementia with behavioral disturbance: Qualifiers: Dementia type: unspecified type Qualified Code(s): F03.91 - Unspecified dementia with behavioral disturbance Code(s): F03.91 - Unspecified dementia with behavioral disturbance Status: Acute Assessment and Plan: Seroquel increased to 25 mg by pt PCP on 06/02/2021 Ativan PRN for increased agitation Haldol if needed plan for placement at [place] or [facility] medical stable for discharge when placement is fond (3) Confusion: Code(s): R41.0 - Disorientation, unspecified Status: Acute Assessment and Plan: Monitor for medication that would cause confusion SArs Test performed negative Urine drug screen negative Troponin normal unable to sit up and does not comprehend what I am saying (4) Frequent falls: Code(s): R29.6 - Repeated falls Status: Acute Assessment and Plan: Place bed in lowest position bed alarm on monitor for patient attempting to get up. (5) Headache: Code(s): R51.9 - Headache, unspecified Status: Acute Assessment and Plan: oral Tylenol given chronic per daughter (6) Facial droop: Code(s): R29.810 - Facial weakness Status: Acute Assessment and Plan: inabiity to swallow ST eval MRI ordered of head IF positive for Stroke will transfer patient out (7) Dysphagia: Code(s): R13.10 - Dysphagia, unspecified Status: Acute Assessment and Plan: Pureed diet ST evaluation on Friday Mri Brain Subjective Date/time seen: 06/02/21 11:22 today patient is lying in bed more alert and talking not as combative patient complains of a headache inability to comprehend when I asked him what his hands were from his feet unable to set up noticed some small drooping to the right side patient unable to smile equally at this time I will order MRI for patient. Patient not swallowing well will order speech eval. Called to discuss plan of care with patient's daughter Iman and expectations for future care. Exam Narrative: GENERAL:Ill-appearing, well-nourished, and in no acute distress. HEAD:Normocephalic, atraumatic. EYES: PERRLA and EOMI. ENT: Nares clear, no rhinorrhea or epistaxis. Mucous membranes moist. CHEST: Clear to diminished auscultation. No respiratory distress. HEART: Regular rate and rhythm. Normal peripheral pulses. ABDOMEN: Soft, nontender, nondistended, normal active bowel sounds. EXTREMITIES: unable to evaluate range of motion. No edema. SKIN: Warm, dry, no rash. NEURO: No focal deficits. Alert and agitated patient not following commands cursing and aggressive kicking refusing to participate Objective Data Vital Signs Vital Signs: Vital Signs - 24 hr 06/01/21 16:30 06/01/21 23:02 06/02/21 07:22 Temperature 98.4 F 97.9 F 97.8 F Pulse Rate 93 97 97 Respiratory Rate 18 24 H 20 Blood Pressure 131/58 L 149/71 H 135/71 Pulse Oximetry 97 96 96 Intake/Output Intake/Output: Intake & Output 05/30/21 05/31/21 06/01/21 06/02/21 23:59 23:59 23:59 23:59 Intake Total 100 250 123 Output Total 800 2 Balance -700 248 123 Meds/Results Medications: Active Medications Generic Name Dose Route Start Last Admin Trade Name Freq PRN Reason Stop Dose Admin Acetaminophen 650 mg 05/31/21 16:37 06/02/21 08:19 Acetaminophen 325 Mg Tablet PO 650 mg Q4H PRN Administration Mild Pain (1-3) or Fever Aspirin 81 mg 06/01/21 09:00 06/02/21 08:22 Aspirin 81 Mg Enteric Tablet PO 81 mg DAILY RINA Administration Atorvastatin Calcium 80 mg 06/01/21 09:00 06/02/21 08:27 Atorvastatin 40 Mg Tablet PO Not Given DAILY RINA Dextrose 12.5 gm
[2021-06-02 12:01] LABS: Glucose Point of Care 147 mg/dl (65-105)
[2021-06-02 16:00] VITALS: BP 142/66; PULSE 96; RESP 21; TEMP 36.7; O2SAT 97
[2021-06-02] MEDS: QUEtiapine FUMARATE 25 MG TABLET PO (21:05)
[2021-06-02 21:18] LABS: Glucose Point of Care 137 mg/dl (65-105)
[2021-06-02 21:23] LABS: Glucose Point of Care 216 mg/dl (65-105)
[2021-06-03] VITALS: BP 101/53; PULSE 115; RESP 26; TEMP 37.3; O2SAT 93
[2021-06-03 07:38] LABS: Glucose Point of Care 173 mg/dl (65-105)
[2021-06-03 08:00] VITALS: BP 122/67; PULSE 122; RESP 24; TEMP 36.7; O2SAT 96
--- NOTE | 2021-06-03 08:08 | PC.NURSE ---
Patient has decreased LOC compared to shift yesterday. SAUSAGE MAKER aware of changes in VS and condition. Pulse and respirations increased. Blood pressure decreased compared to patient norm. Patient arousable to name. No independent movement of limbs. Grimacing present when repositioning patient.
[2021-06-03 12:03] LABS: Glucose Point of Care 173 mg/dl (65-105)
--- NOTE | 2021-06-03 12:54 | PM.IMPN ---
Progress Note: A&P Assessment and Plan (1) Hypomagnesemia: Code(s): E83.42 - Hypomagnesemia Status: Acute Assessment and Plan: inital 0.8 IV magnesium Current mag level 1.6 Additonal IV mag given current level 2.1 (2) Dementia with behavioral disturbance: Qualifiers: Dementia type: unspecified type Qualified Code(s): F03.91 - Unspecified dementia with behavioral disturbance Code(s): F03.91 - Unspecified dementia with behavioral disturbance Status: Acute Assessment and Plan: Seroquel increased to 25 mg by pt PCP on 06/02/2021 Ativan PRN for increased agitation Haldol if needed plan for placement at [place] or long-term [facility] medical stable for discharge when placement is found (3) Confusion: Code(s): R41.0 - Disorientation, unspecified Status: Acute Assessment and Plan: Monitor for medication that would cause confusion SArs Test performed negative Urine drug screen negative Troponin normal unable to sit up and does not comprehend what I am saying (4) Frequent falls: Code(s): R29.6 - Repeated falls Status: Acute Assessment and Plan: Place bed in lowest position bed alarm on monitor for patient attempting to get up. (5) Headache: Code(s): R51.9 - Headache, unspecified Status: Acute Assessment and Plan: oral Tylenol given chronic per daughter (6) Facial droop: Code(s): R29.810 - Facial weakness Status: Acute Assessment and Plan: inabiity to swallow ST eval MRI ordered of head IF positive for Stroke will transfer patient out (7) Dysphagia: Code(s): R13.10 - Dysphagia, unspecified Status: Acute Assessment and Plan: Pureed diet ST evaluation on Friday Mri Brain is negative for stroke Patient is in need for long-term placement Subjective Date/time seen: 06/03/21 12:54 Patient remains very lethargic not eating well. Patient Daughter Iman here and aware patient is in need of long-term placement. She is wanting memory care if possible . Patient is not talking much and attempt to put his hand towards his mouth although not making it. At this time patient is resting well and we will work on placement. tomorrow. Exam Narrative: GENERAL:Ill-appearing, well-nourished, and in no acute distress. HEAD:Normocephalic, atraumatic. neck pain chronic EYES: PERRLA and EOMI. ENT: Nares clear, no rhinorrhea or epistaxis. Mucous membranes moist. CHEST: Clear to diminished auscultation. No respiratory distress. HEART: Regular rate and rhythm. Normal peripheral pulses. ABDOMEN: Soft, nontender, nondistended, normal active bowel sounds. EXTREMITIES: unable to evaluate range of motion. No edema. SKIN: Warm, dry, no rash. NEURO: No focal deficits. Alert and agitated patient not following commands cursing and aggressive kicking refusing to participate Objective Data Vital Signs Vital Signs: Vital Signs - 24 hr 06/02/21 16:00 06/03/21 00:00 06/03/21 08:00 Temperature 98.0 F 99.2 F 98.1 F Pulse Rate 96 115 H 122 H Respiratory Rate 21 H 26 H 24 H Blood Pressure 142/66 H 101/53 L 122/67 Pulse Oximetry 97 93 96 Intake/Output Intake/Output: Intake & Output 05/31/21 06/01/21 06/02/21 06/03/21 23:59 23:59 23:59 23:59 Intake Total 100 250 613 75 Output Total 800 2 Balance -700 248 613 75 Meds/Results Medications: Active Medications Generic Name Dose Route Start Last Admin Trade Name Freq PRN Reason Stop Dose Admin Acetaminophen 650 mg 05/31/21 16:37 06/02/21 08:19 Acetaminophen 325 Mg Tablet PO 650 mg Q4H PRN Administration Mild Pain (1-3) or Fever Aspirin 81 mg 06/01/21 09:00 06/03/21 09:01 Aspirin 81 Mg Enteric Tablet PO Not Given DAILY RINA Atorvastatin Calcium 80 mg 06/01/21 09:00 06/03/21 09:01 Atorvastatin 40 Mg Tablet PO Not Given DAILY [facility] Dextrose 12.5 gm 06/01/21 11:23 D
[2021-06-03 16:00] VITALS: BP 124/60; PULSE 101; RESP 18; TEMP 36.6; O2SAT 96
[2021-06-03 16:35] LABS: Glucose Point of Care 178 mg/dl (65-105)
[2021-06-03 21:33] LABS: Glucose Point of Care 264 mg/dl (65-105)
[2021-06-04] VITALS: BP 122/74; PULSE 105; RESP 20; TEMP 36.8; O2SAT 97
[2021-06-04 05:21] LABS: Hematocrit 40.4 % (37.0-46.0); Hemoglobin 12.9 g/dL (12.4-15.3); Mean Corpuscular HGB Conc 31.9 g/dL (32.0-36.0); Mean Corpuscular Hemoglobin 31.9 pg (27.0-31.0); Mean Corpuscular Volume 99.8 fL (78.0-102.0); Mean Platelet Volume 10.3 fl (8.7-11.0); Platelet Count Result 217 K/mm3 (150-420); Red Blood Count 4.05 M/mm3 (4.70-6.10); Red Cell Distribution Width 13.3 % (11.6-14.4); White Blood Count 8.9 K/mm3 (4.8-10.8)
[2021-06-04 05:32] LABS: Anion Gap 11 mmol/L (8-16); Blood Urea Nitrogen 32 mg/dL (7-18); Calcium 9.7 mg/dL (8.5-10.1); Carbon Dioxide 27 mmol/L (21-32); Chloride 101 mmol/L (98-108); Estimated CRCL calculation 45 ml/min; Estimated Glomerular Filt Rate > 60; Glucose 218 mg/dL (70-99); Osmolality Calculated 301 mOsm/kg (285-295); Potassium 4.3 mmol/L (3.5-5.1); Sodium 139 mmol/L (136-145)
[2021-06-04 08:00] VITALS: BP 134/100; PULSE 101; RESP 16; TEMP 36.6; O2SAT 97
[2021-06-04 08:01] LABS: Glucose Point of Care 193 mg/dl (65-105)
[2021-06-04 09:20] VITALS: PULSE 101
[2021-06-04] MEDS: METOPROLOL SUCCINATE EXT REL 50 MG TABCR PO (09:20)
[2021-06-04] MEDS: ATORVASTATIN 40 MG TABLET 80 MG PO (09:20)
[2021-06-04] MEDS: DIVALPROEX SODIUM ER 250 MG TAB.24H PO (09:22)
[2021-06-04] MEDS: ASPIRIN 81 MG ENTERIC TABLET PO (09:22)
--- NOTE | 2021-06-04 09:22 | PM.EVENT ---
Event Note Event Note Event Note: Spoke with Dr. Spann who informed me to obtain a MRI of Cervical spine , Gave him the result of mri of the brain.
[2021-06-04] MEDS: UMECLIDINIUM/VILANTEROL 62.5-25 MCG ELLIPTA 1 PUFF INHALATION (09:23)
[2021-06-04] MEDS: lisinopriL 5 MG TABLET PO (09:23)
--- NOTE | 2021-06-04 09:23 | PM.IMPN ---
Progress Note: A&P Assessment and Plan (1) Hypomagnesemia: Code(s): E83.42 - Hypomagnesemia Status: Acute Assessment and Plan: inital 0.8 IV magnesium Current mag level 1.6 Additonal IV mag given current level 2.1 (2) Dementia with behavioral disturbance: Qualifiers: Dementia type: unspecified type Qualified Code(s): F03.91 - Unspecified dementia with behavioral disturbance Code(s): F03.91 - Unspecified dementia with behavioral disturbance Status: Acute Assessment and Plan: Seroquel increased to 25 mg by pt PCP on 06/02/2021 Ativan PRN for increased agitation Haldol if needed [facility] [place] [facility] for discharge when placement is found Pt in need of intermediate more than psych Called and spoke with Neurology and I will obtain MRI of Cervical spine. (3) Confusion: Code(s): R41.0 - Disorientation, unspecified Status: Acute Assessment and Plan: Monitor for medication that would cause confusion SArs Test performed negative Urine drug screen negative Troponin normal unable to sit up and does not comprehend what I am saying Right sided lean and facial drooping spoke with Neurology gave them information on MRI result will obtain MRI of cervical spine (4) Frequent falls: Code(s): R29.6 - Repeated falls Status: Acute Assessment and Plan: Place bed in lowest position bed alarm on monitor for patient attempting to get up. (5) Headache: Code(s): R51.9 - Headache, unspecified Status: Acute Assessment and Plan: oral Tylenol given chronic per daughter MRI of Cervical spine (6) Facial droop: Code(s): R29.810 - Facial weakness Status: Acute Assessment and Plan: inabiity to swallow ST eval MRI ordered of head IF positive for Stroke will transfer patient out pt is negative (7) Dysphagia: Code(s): R13.10 - Dysphagia, unspecified Status: Acute Assessment and Plan: Pureed diet ST evaluation on Friday Mri Brain is negative for stroke Patient is in need for intermediate placement Subjective Date/time seen: 06/04/21 09:23 Patient is up in recliner chair and he is resting well less combative although he is leaning to one side (right) Patient will have a MRI of the cervical spine completed tomorrow. Patient is eating a pureed diet and he breathing without any difficulties today labs look good. Will continue to closely monitor. Exam Narrative: GENERAL:Ill-appearing, well-nourished, and in no acute distress. HEAD:Normocephalic, atraumatic. neck pain chronic EYES: PERRLA and EOMI. ENT: Nares clear, no rhinorrhea or epistaxis. Mucous membranes moist. CHEST: Clear to diminished auscultation. No respiratory distress. HEART: Regular rate and rhythm. Normal peripheral pulses. ABDOMEN: Soft, nontender, nondistended, normal active bowel sounds. EXTREMITIES: unable to evaluate range of motion. No edema. SKIN: Warm, dry, no rash. NEURO: No focal deficits. Alert and agitated patient not following commands cursing and aggressive kicking refusing to participate Objective Data Vital Signs Vital Signs: Vital Signs - 24 hr 06/03/21 16:00 06/04/21 00:00 06/04/21 08:00 Temperature 97.9 F 98.2 F 97.9 F Pulse Rate 101 H 105 H 101 H Respiratory Rate 18 20 16 Blood Pressure 124/60 122/74 134/100 H Pulse Oximetry 96 97 97 Intake/Output Intake/Output: Intake & Output 06/01/21 06/02/21 06/03/21 06/04/21 23:59 23:59 23:59 23:59 Intake Total 250 613 870 100 Output Total 2 Balance 248 613 870 100 Meds/Results Medications: Active Medications Generic Name Dose Route Start Last Admin Trade Name Freq PRN Reason Stop Dose Admin Acetaminophen 650 mg 05/31/21 16:37 06/02/21 08:19 Acetaminophen 325 Mg Tablet PO 650 mg Q4H PRN Administration Mild Pain (1-3) or Fever Aspirin 81 mg 06/01/21 09
[2021-06-04 09:41] LABS: Magnesium 1.8 mg/dL (1.8-2.4)
--- NOTE | 2021-06-04 10:07 | PCSTNOTE ---
Please refer to the Bedside Swallow Evaluation in the EMR. Please note, silent aspiration cannot be ruled out at bedside.
[2021-06-04 11:37] LABS: Glucose Point of Care 204 mg/dl (65-105)
[2021-06-04 15:32] LABS: SARS-CoV-2 RNA PCR Negative (Negative)
[2021-06-04 16:00] VITALS: BP 122/62; PULSE 83; RESP 14; TEMP 37.1; O2SAT 99
[2021-06-04 16:51] LABS: Glucose Point of Care 197 mg/dl (65-105)
--- NOTE | 2021-06-04 18:52 | PC.NURSE ---
Scot, [employer] ENGINEER/Hospitalist, notified that family stated patient was on Aricept and had improved behaviors but doctors stopped med after patient had falls.
[2021-06-04] MEDS: ACETAMINOPHEN 325 MG TABLET 650 MG PO (21:27)
[2021-06-04] MEDS: QUEtiapine FUMARATE 25 MG TABLET PO (21:27)
[2021-06-04] MEDS: DONEPEZIL HCL 5 MG TABLET PO (21:29)
[2021-06-04 21:40] LABS: Glucose Point of Care 231 mg/dl (65-105)
[2021-06-05] VITALS: BP 108/70; PULSE 76; RESP 17; TEMP 36.4; O2SAT 96
[2021-06-05 08:00] VITALS: BP 114/60; PULSE 95; RESP 16; TEMP 36.2; O2SAT 99
[2021-06-05 08:02] LABS: Glucose Point of Care 172 mg/dl (65-105)
[2021-06-05] MEDS: UMECLIDINIUM/VILANTEROL 62.5-25 MCG ELLIPTA 1 PUFF INHALATION (09:18)
[2021-06-05] MEDS: DIVALPROEX SODIUM ER 250 MG TAB.24H PO (09:18)
[2021-06-05 09:19] VITALS: PULSE 79
[2021-06-05] MEDS: ASPIRIN 81 MG ENTERIC TABLET PO (09:19)
[2021-06-05] MEDS: ATORVASTATIN 40 MG TABLET 80 MG PO (09:19)
[2021-06-05] MEDS: METOPROLOL SUCCINATE EXT REL 50 MG TABCR PO (09:19)
[2021-06-05] MEDS: FOLIC ACID 1 MG TABLET PO (09:19)
[2021-06-05] MEDS: lisinopriL 5 MG TABLET PO (09:19)
--- NOTE | 2021-06-05 10:30 | PM.IMPN ---
Progress Note: A&P Assessment and Plan (1) Hypomagnesemia: Code(s): E83.42 - Hypomagnesemia Status: Acute Assessment and Plan: inital 0.8 IV magnesium Current mag level 1.6 Additonal IV mag given current level 2.1 (2) Dementia with behavioral disturbance: Qualifiers: Dementia type: unspecified type Qualified Code(s): F03.91 - Unspecified dementia with behavioral disturbance Code(s): F03.91 - Unspecified dementia with behavioral disturbance Status: Acute Assessment and Plan: Seroquel increased to 25 mg by pt PCP on 06/02/2021 Ativan PRN for increased agitation Haldol if needed [facility] [place] [facility] medical stable for discharge when placement is found Pt in need of penitentiary more than psych Called and spoke with Neurology and I will obtain MRI of Cervical spine. Aircept started. (3) Confusion: Code(s): R41.0 - Disorientation, unspecified Status: Acute Assessment and Plan: Monitor for medication that would cause confusion SArs Test performed negative Urine drug screen negative Troponin normal unable to sit up and does not comprehend what I am saying Right sided lean and facial drooping spoke with Neurology gave them information on MRI result will obtain MRI of cervical spine (4) Frequent falls: Code(s): R29.6 - Repeated falls Status: Acute Assessment and Plan: Place bed in lowest position bed alarm on monitor for patient attempting to get up. (5) Headache: Code(s): R51.9 - Headache, unspecified Status: Acute Assessment and Plan: oral Tylenol given chronic per daughter MRI of Cervical spine (6) Facial droop: Code(s): R29.810 - Facial weakness Status: Acute Assessment and Plan: inabiity to swallow ST eval MRI ordered of head IF positive for Stroke will transfer patient out pt is negative (7) Dysphagia: Code(s): R13.10 - Dysphagia, unspecified Status: Acute Assessment and Plan: Pureed diet ST evaluation on Friday Mri Brain is negative for stroke Patient is in need for penitentiary placement Subjective Date/time seen: 06/05/21 10:30 This is a 80 year and he has been started on some Aricept last night although he has continually seems to be improving somewhat. Patient has been medically cleared to go to behavioral health and or penitentiary . Patient at this time would not be appropriate for assistive living. Patient is up in recliner chair relaxing and eating he does require some assistance and he has moments when he is ok and then moments when he can be more aggressive although I have not seen any combative behavior in a few days. Exam Narrative: GENERAL:Ill-appearing, well-nourished, and in no acute distress. HEAD:Normocephalic, atraumatic. neck pain chronic EYES: PERRLA and EOMI. ENT: Nares clear, no rhinorrhea or epistaxis. Mucous membranes moist. CHEST: Clear to diminished auscultation. No respiratory distress. HEART: Regular rate and rhythm. Normal peripheral pulses. ABDOMEN: Soft, nontender, nondistended, normal active bowel sounds. EXTREMITIES: unable to evaluate range of motion. No edema. SKIN: Warm, dry, no rash. NEURO: No focal deficits. Alert and agitated patient not following commands cursing and aggressive kicking refusing to participate Objective Data Vital Signs Vital Signs: Vital Signs - 24 hr 06/04/21 16:00 06/05/21 00:00 06/05/21 08:00 Temperature 98.7 F 97.6 F 97.2 F L Pulse Rate 83 76 95 Respiratory Rate 14 17 16 Blood Pressure 122/62 108/70 114/60 Pulse Oximetry 99 96 99 06/05/21 09:19 Temperature Pulse Rate 79 Respiratory Rate Blood Pressure Pulse Oximetry Intake/Output Intake/Output: Intake & Output 06/02/21 06/03/21 06/04/21 06/05/21 23:59 23:59 23:59 23:59 Intake Total 753 979 7565 650 Balance 670 524 4422 650 Meds/Results Medications:
--- NOTE | 2021-06-05 13:40 | PC.NURSE ---
Pt off unit for MRI. No blood glucose done. RO
[2021-06-05 16:00] VITALS: BP 131/68; PULSE 99; RESP 17; TEMP 36.6; O2SAT 92
[2021-06-05 16:54] LABS: Glucose Point of Care 175 mg/dl (65-105)
[2021-06-05] MEDS: QUEtiapine FUMARATE 25 MG TABLET PO (20:49)
[2021-06-05] MEDS: DONEPEZIL HCL 5 MG TABLET PO (20:49)
--- NOTE | 2021-06-05 21:00 | PC.NURSE ---
Patient awakened easily. Gave patient his 2100 meds in applesauce and patient spit it all back out onto nurse and bed rail. Patient refused to let nurse get blood sugar but then 2nd nurse did obtain it. Patient incontinent of urine with bed changed. Call light in reach. Bed alarm on.
[2021-06-05 21:09] LABS: Glucose Point of Care 177 mg/dl (65-105)
[2021-06-06] VITALS: BP 128/61; PULSE 85; RESP 16; TEMP 36.5; O2SAT 94
[2021-06-06 07:36] LABS: Glucose Point of Care 178 mg/dl (65-105)
[2021-06-06 07:39] VITALS: BP 133/57; PULSE 74; RESP 15; TEMP 36.5; O2SAT 99
[2021-06-06] MEDS: DIVALPROEX SODIUM ER 250 MG TAB.24H PO (08:03)
[2021-06-06 08:04] VITALS: PULSE 99
[2021-06-06] MEDS: ASPIRIN 81 MG ENTERIC TABLET PO (08:04)
[2021-06-06] MEDS: lisinopriL 5 MG TABLET PO (08:04)
[2021-06-06] MEDS: ATORVASTATIN 40 MG TABLET 80 MG PO (08:04)
[2021-06-06] MEDS: METOPROLOL SUCCINATE EXT REL 50 MG TABCR PO (08:04)
[2021-06-06] MEDS: FOLIC ACID 1 MG TABLET PO (08:05)
[2021-06-06 08:59] LABS: Hematocrit 39.7 % (37.0-46.0); Hemoglobin 12.9 g/dL (12.4-15.3); Mean Corpuscular HGB Conc 32.5 g/dL (32.0-36.0); Mean Corpuscular Hemoglobin 32.3 pg (27.0-31.0); Mean Corpuscular Volume 99.3 fL (78.0-102.0); Mean Platelet Volume 9.5 fl (8.7-11.0); Platelet Count Result 302 K/mm3 (150-420); Red Cell Distribution Width 13.2 % (11.6-14.4); White Blood Count 6.7 K/mm3 (4.8-10.8)
[2021-06-06 09:14] LABS: Alanine Aminotransferase 135 U/L (16-63); Alkaline Phosphatase 105 U/L (46-116); Anion Gap 10 mmol/L (8-16); Aspartate Amino Transferase 56 U/L (15-37); Bilirubin,Total 0.6 mg/dL (0.00-1.00); Blood Urea Nitrogen 39 mg/dL (7-18); Calcium 9.5 mg/dL (8.5-10.1); Carbon Dioxide 28 mmol/L (21-32); Chloride 104 mmol/L (98-108); Estimated CRCL calculation 49 ml/min; Estimated Glomerular Filt Rate > 60; Glucose 184 mg/dL (70-99); Magnesium 1.5 mg/dL (1.8-2.4); Osmolality Calculated 308 mOsm/kg (285-295); Potassium 4.2 mmol/L (3.5-5.1); Sodium 142 mmol/L (136-145); Total Protein 7.5 g/dL (6.4-8.2)
--- NOTE | 2021-06-06 10:07 | P.PN_ITS ---
Progress Note: A&P Assessment and Plan (1) Hypomagnesemia: Code(s): E83.42 - Hypomagnesemia Status: Acute Assessment and Plan: * inital 0.8>2.1>1.8>1.5 * Ordered mag supplement twice daily (2) Dementia with behavioral disturbance: Qualifiers: Dementia type: unspecified type Qualified Code(s): F03.91 - Unspecified dementia with behavioral disturbance Code(s): F03.91 - Unspecified dementia with behavioral disturbance Status: Acute Assessment and Plan: * Seroquel increased to 25 mg by pt PCP on 06/02/2021 * Ativan discontinued due to oversedation we will start hydroxyzine and closely monitor * plan [facility] [place] [facility] * medical stable for discharge when placement is found * Aircept started. (3) Confusion: Code(s): R41.0 - Disorientation, unspecified Status: Acute Assessment and Plan: * Monitor for medication that would cause confusion * SArs Test performed negative * Urine drug screen negative * Troponin normal Right sided lean and facial drooping spoke with Neurology gave them information on MRI result will obtain MRI of cervical spine per previous provider (4) Frequent falls: Code(s): R29.6 - Repeated falls Status: Acute Assessment and Plan: * Place bed in lowest position * bed alarm on * monitor for patient attempting to get up. (5) Headache: Code(s): R51.9 - Headache, unspecified Status: Acute Assessment and Plan: * oral Tylenol given * chronic per daughter * MRI of Cervical spine no new findings (6) Facial droop: Code(s): R29.810 - Facial weakness Status: Acute Assessment and Plan: * inabiity to swallow * ST eval silent aspiration cannot be ruled out at bedside. Recommend pur?ed diet with thin liquids and one-to-one supervision during meals * MRI ordered of head no CVA or infarct indicated (7) Dysphagia: Code(s): R13.10 - Dysphagia, unspecified Status: Acute Assessment and Plan: * Pureed diet * ST evaluation refer to notes * Mri Brain is negative for stroke * Patient is in need for penitentiary placement Subjective Date/time seen: 06/06/21 10:07 patient is lethargic this visit. Have discontinued use of Ativan possible cause for lethargic . Patient does not appear to be in any distress and is arousable with stimulation. He attempts to answer questions. We will continue to monitor patient. Plans for patient today to be evaluated for possible placement Review of Systems Review of Systems: A 14 organ system Review of Systems was performed and pertinent positives included in the HPI, otherwise remaining ROS is negative. Exam Narrative: GENERAL: Lethargic, in no apparent distress. HEAD: normocephalic, atraumatic. EYES: PERRL. Sclera clear/white. Vision is grossly intact. EARS: External ears normal, auditory canals clear and without drainage, TMs normal without perforation. Hearing grossly intact. NOSE: External nose normal with no obvious nasal discharge, nares without redness, no rhinorrhea. THROAT: Mucous membranes moist, posterior pharynx clear. NECK: Neck supple, non-tender without lymphadenopathy, masses or thyromegaly. CARDIOVASCULAR: Regular rate and rhythm without murmurs, gallops, or rubs. RESPIRATORY: Clear to auscultation. Breath sounds equal bilaterally. No wheezes, rales, or rhonchi. GASTROINTESTINAL: Abdomen soft, non-tender, nondistended. Bowel sounds are active. No hepato-splen
--- NOTE | 2021-06-06 10:07 | WPDPN ---
Progress Note: A&P Assessment and Plan (1) Hypomagnesemia: Code(s): E83.42 - Hypomagnesemia Status: Acute Assessment and Plan: inital 0.8>2.1>1.8>1.5 Ordered mag supplement twice daily (2) Dementia with behavioral disturbance: Qualifiers: Dementia type: unspecified type Qualified Code(s): F03.91 - Unspecified dementia with behavioral disturbance Code(s): F03.91 - Unspecified dementia with behavioral disturbance Status: Acute Assessment and Plan: Seroquel increased to 25 mg by pt PCP on 06/02/2021 Ativan discontinued due to oversedation we will start hydroxyzine and closely monitor [facility] [place] [facility] medical stable for discharge when placement is found Aircept started. (3) Confusion: Code(s): R41.0 - Disorientation, unspecified Status: Acute Assessment and Plan: Monitor for medication that would cause confusion SArs Test performed negative Urine drug screen negative Troponin normal Right sided lean and facial drooping spoke with Neurology gave them information on MRI result will obtain MRI of cervical spine per previous provider (4) Frequent falls: Code(s): R29.6 - Repeated falls Status: Acute Assessment and Plan: Place bed in lowest position bed alarm on monitor for patient attempting to get up. (5) Headache: Code(s): R51.9 - Headache, unspecified Status: Acute Assessment and Plan: oral Tylenol given chronic per daughter MRI of Cervical spine no new findings (6) Facial droop: Code(s): R29.810 - Facial weakness Status: Acute Assessment and Plan: inabiity to swallow ST eval silent aspiration cannot be ruled out at bedside. Recommend pur?ed diet with thin liquids and one-to-one supervision during meals MRI ordered of head no CVA or infarct indicated (7) Dysphagia: Code(s): R13.10 - Dysphagia, unspecified Status: Acute Assessment and Plan: Pureed diet ST evaluation refer to notes Mri Brain is negative for stroke Patient is in need for [facility] Subjective Date/time seen: 06/06/21 10:07 patient is lethargic this visit. Have discontinued use of Ativan possible cause for lethargic . Patient does not appear to be in any distress and is arousable with stimulation. He attempts to answer questions. We will continue to monitor patient. Plans for patient today to be evaluated for possible placement Review of Systems Review of Systems: A 14 organ system Review of Systems was performed and pertinent positives included in the HPI, otherwise remaining ROS is negative. Exam Narrative: GENERAL: Lethargic, in no apparent distress. HEAD: normocephalic, atraumatic. EYES: PERRL. Sclera clear/white. Vision is grossly intact. EARS: External ears normal, auditory canals clear and without drainage, TMs normal without perforation. Hearing grossly intact. NOSE: External nose normal with no obvious nasal discharge, nares without redness, no rhinorrhea. THROAT: Mucous membranes moist, posterior pharynx clear. NECK: Neck supple, non-tender without lymphadenopathy, masses or thyromegaly. CARDIOVASCULAR: Regular rate and rhythm without murmurs, gallops, or rubs. RESPIRATORY: Clear to auscultation. Breath sounds equal bilaterally. No wheezes, rales, or rhonchi. GASTROINTESTINAL: Abdomen soft, non-tender, nondistended. Bowel sounds are active. No hepato-splenomegaly, or palpable masses. No guarding. SKIN: warm, intact with no suspicious lesions or rash, good texture and turgor. NEURO: Patient remains lethargic due to medication use EXTREMITIES: No edema. No calf tenderness. Negative Homans sign bilaterally. BACK: Nontender without deformity or crepitance. No flank tenderness. Objective Data Vital Signs Vital Signs: Vital Signs - 24 hr 06/05/21 16:00 06/06/21 00:00 06/06/21 07:39 Temperat
[2021-06-06 11:45] LABS: Glucose Point of Care 162 mg/dl (65-105)
[2021-06-06] MEDS: MAGNESIUM OXIDE 400 MG TABLET PO ×2 (11:57→17:09)
[2021-06-06 16:00] VITALS: BP 136/49; PULSE 87; RESP 17; TEMP 36.6; O2SAT 99
[2021-06-06 16:51] LABS: Glucose Point of Care 160 mg/dl (65-105)
[2021-06-06] MEDS: DONEPEZIL HCL 5 MG TABLET PO (17:09)
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
[2021-06-06] MEDS: QUEtiapine FUMARATE 25 MG TABLET PO (20:30)
[2021-06-06] MEDS: hydrOXYzine HCL 12.5 MG TABLET PO (20:30)
[2021-06-06 20:33] LABS: Glucose Point of Care 206 mg/dl (65-105)
--- NOTE | 2021-06-06 20:35 | PC.NURSE ---
Patient all of a sudden calmed down and let nurse reposition him. Nurse asked patient if he would take his medicine and he agreed. Patient given HS medicine and PRN Hydroxyzine in applesauce and then patient ate the rest of the applesauce, fed by nurse. Patient denied offer of fluids.
--- NOTE | 2021-06-06 21:00 | PC.NURSE ---
Patient appears to be sleeping by the rise and fall of his chest. Respirations even and unlabored. No distress noted. Call light in reach.
[2021-06-07] VITALS: BP 130/84; PULSE 82; RESP 18; TEMP 36.7; O2SAT 98
[2021-06-07] MEDS: ACETAMINOPHEN 325 MG TABLET 650 MG PO (01:28)
--- NOTE | 2021-06-07 01:35 | PC.NURSE ---
Patient yelled out in pain when repositioned in bed. Patient said he was in pain when asked but couldn't say where. Patient told scientific technical writer he would take Tylenol but when medicine was ready patient refused, cussing at scientific technical writer. 2nd nurse was able to get patient to take the medicine but he also then cussed her. Call light in reach.
[2021-06-07 07:29] LABS: Glucose Point of Care 140 mg/dl (65-105)
[2021-06-07 07:35] VITALS: BP 138/69; PULSE 93; RESP 16; TEMP 36.8; O2SAT 99
[2021-06-07] MEDS: hydrOXYzine HCL 12.5 MG TABLET PO (08:11)
[2021-06-07] MEDS: ASPIRIN 81 MG ENTERIC TABLET PO (08:11)
[2021-06-07] MEDS: ATORVASTATIN 40 MG TABLET 80 MG PO (08:11)
[2021-06-07 08:12] VITALS: PULSE 93
[2021-06-07] MEDS: METOPROLOL SUCCINATE EXT REL 50 MG TABCR PO (08:12)
[2021-06-07] MEDS: lisinopriL 5 MG TABLET PO (08:12)
[2021-06-07] MEDS: MAGNESIUM OXIDE 400 MG TABLET PO (08:13)
[2021-06-07] MEDS: FOLIC ACID 1 MG TABLET PO (08:13)
[2021-06-07] MEDS: DIVALPROEX SODIUM ER 250 MG TAB.24H PO (08:13)
[2021-06-07 12:23] LABS: Glucose Point of Care 181 mg/dl (65-105)
[2021-06-07 15:56] LABS: SARS-CoV-2 Ag Negative (Negative)
[2021-06-07 16:00] VITALS: BP 116/72; PULSE 92; RESP 16; TEMP 36.7; O2SAT 99
[2021-06-07 16:51] LABS: Glucose Point of Care 175 mg/dl (65-105)
--- NOTE | 2021-06-07 17:50 | PC.NURSE ---
Patient discharged to [facility]. Transported by [place] ambulance, via stretcher. Discharge instructions sent with patient via ambulance staff, and faxed to facility. Report called to Ruth Ann in nursing at [facility]. Personal belongings, including food, teeth, glasses and walker sent with patient.
--- NOTE | 2021-06-08 10:22 | P.DS_ITS ---
DS: Admitting Diagnosis Discharge Date 06/07/21 Admitting Diagnosis hypomagnesemia, confusion DS: Discharge Diagnosis Discharge Diagnosis (1) Hypomagnesemia: Code(s): E83.42 - Hypomagnesemia Status: Acute Assessment and Plan: * inital 0.8>2.1>1.8>1.5 * Ordered mag supplement twice daily (2) Dementia with behavioral disturbance: Qualifiers: Dementia type: unspecified type Qualified Code(s): F03.91 - Unspecified dementia with behavioral disturbance Code(s): F03.91 - Unspecified dementia with behavioral disturbance Status: Acute Assessment and Plan: * Seroquel increased to 25 mg by pt PCP on 06/02/2021 * Ativan discontinued due to oversedation we will start hydroxyzine and closely monitor * [facility] * medical stable for discharge when placement is found * Aircept started. (3) Confusion: Code(s): R41.0 - Disorientation, unspecified Status: Acute Assessment and Plan: * Monitor for medication that would cause confusion * SArs Test performed negative * Urine drug screen negative * Troponin normal Right sided lean and facial drooping spoke with Neurology gave them information on MRI result will obtain MRI of cervical spine per previous provider (4) Frequent falls: Code(s): R29.6 - Repeated falls Status: Acute Assessment and Plan: * Place bed in lowest position * bed alarm on * monitor for patient attempting to get up. (5) Headache: Code(s): R51.9 - Headache, unspecified Status: Acute Assessment and Plan: * oral Tylenol given * chronic per daughter * MRI of Cervical spine no new findings (6) Facial droop: Code(s): R29.810 - Facial weakness Status: Acute Assessment and Plan: * inabiity to swallow * ST eval silent aspiration cannot be ruled out at bedside. Recommend pur?ed diet with thin liquids and one-to-one supervision during meals * MRI ordered of head no CVA or infarct indicated (7) Dysphagia: Code(s): R13.10 - Dysphagia, unspecified Status: Acute Assessment and Plan: * Pureed diet * ST evaluation refer to notes * Mri Brain is negative for stroke * Patient is in need for [facility] placement DS: Summary Hospital Course Reason for hospitalization: confusion agitation and some hallucinations. Hospital Course: This is a 80-year-old male with a past medical history of cardiomyopathy, coronary artery disease, hypertension, diabetes, hyperlipidemia, history of lung cancer in the right lower lobe, had a right lobectomy, status post coronary artery placement with 1 stent in 2012, and angioplasty as well. Patient presented to the emergency room with increased confusion agitation and some hallucinations. Patient lives at assisted living as he had went outside and defecated on the sidewalk patient had several falls over the past few days. Patient is also seen at the [facility] for his [facility]. Patient's labs ultimately were insignificant except for his magnesium was 0.8. Patient has been evaluated by the [facility] and will be placed this day of discharge. No obvious distress noted patient continues to be confused does not appear to have hallucinations this day he has been started on all his psych medications which was abruptly discontinued. Time Spent with Patient Time attestation: Total time spent providing and/or coordinating discharge services: Exam Narrative: GENERAL: Lethargic with improvement, and
--- NOTE | 2021-06-08 10:22 | PM.DS ---
DS: Admitting Diagnosis Discharge Date 06/07/21 Admitting Diagnosis hypomagnesemia, confusion DS: Discharge Diagnosis Discharge Diagnosis (1) Hypomagnesemia: Code(s): E83.42 - Hypomagnesemia Status: Acute Assessment and Plan: inital 0.8>2.1>1.8>1.5 Ordered mag supplement twice daily (2) Dementia with behavioral disturbance: Qualifiers: Dementia type: unspecified type Qualified Code(s): F03.91 - Unspecified dementia with behavioral disturbance Code(s): F03.91 - Unspecified dementia with behavioral disturbance Status: Acute Assessment and Plan: Seroquel increased to 25 mg by pt PCP on 06/02/2021 Ativan discontinued due to oversedation we will start hydroxyzine and closely monitor [place] [facility] declined medical stable for discharge when placement is found Aircept started. (3) Confusion: Code(s): R41.0 - Disorientation, unspecified Status: Acute Assessment and Plan: Monitor for medication that would cause confusion SArs Test performed negative Urine drug screen negative Troponin normal Right sided lean and facial drooping spoke with Neurology gave them information on MRI result will obtain MRI of cervical spine per previous provider (4) Frequent falls: Code(s): R29.6 - Repeated falls Status: Acute Assessment and Plan: Place bed in lowest position bed alarm on monitor for patient attempting to get up. (5) Headache: Code(s): R51.9 - Headache, unspecified Status: Acute Assessment and Plan: oral Tylenol given chronic per daughter MRI of Cervical spine no new findings (6) Facial droop: Code(s): R29.810 - Facial weakness Status: Acute Assessment and Plan: inabiity to swallow ST eval silent aspiration cannot be ruled out at bedside. Recommend pur?ed diet with thin liquids and one-to-one supervision during meals MRI ordered of head no CVA or infarct indicated (7) Dysphagia: Code(s): R13.10 - Dysphagia, unspecified Status: Acute Assessment and Plan: Pureed diet ST evaluation refer to notes Mri Brain is negative for stroke Patient is in need for senior living placement DS: Summary Hospital Course Reason for hospitalization: confusion agitation and some hallucinations. Hospital Course: This is a 80-year-old male with a past medical history of cardiomyopathy, coronary artery disease, hypertension, diabetes, hyperlipidemia, history of lung cancer in the right lower lobe, had a right lobectomy, status post coronary artery placement with 1 stent in 2012, and angioplasty as well. Patient presented to the emergency room with increased confusion agitation and some hallucinations. Patient lives at assisted living as he had went outside and defecated on the sidewalk patient had several falls over the past few days. [facility] Patient's labs ultimately were insignificant except for his magnesium was 0.8. Patient has been evaluated by the senior living and will be placed this day of discharge. No obvious distress noted patient continues to be confused does not appear to have hallucinations this day he has been started on all his psych medications which was abruptly discontinued. Time Spent with Patient Time attestation: Total time spent providing and/or coordinating discharge services: Exam Narrative: GENERAL: Lethargic with improvement, and confusions in no apparent distress. HEAD: normocephalic, atraumatic. EYES: PERRL. Sclera clear/white. Vision is grossly intact. EARS: External ears normal, auditory canals clear and without drainage, TMs normal without perforation. Hearing grossly intact. NOSE: External nose normal with no obvious nasal discharge, nares without redness, no rhinorrhea. THROAT: Mucous membranes moist, posterior pharynx clear. NECK: Neck supple, non-tender wit
--- NOTE | 2021-06-08 11:59 | PCCCNOTE ---
Care Coordination faxed [facility] to [facility] per their request [phone].
--- NOTE | 2021-06-11 11:10 | PC.NURSE ---
[facility] nurse states they received and understood the discharge instructions.
== END 2021-06-07 17:50 ==
LOC: CHSED 16:05 → CHS2ND 16:47
PROVIDERS: Nurse Practitioner; Nurse Practitioner Family; Admitting Provider Internal Medicine; Emergency Provider Emergency Medicine; PCP Nurse Practitioner Family; Visit Provider Internal Medicine
DX: E83.42 Hypomagnesemia (principal); F03.91 Unspecified dementia, unspecified severity, with behavioral disturbance; I25.810 Atherosclerosis of coronary artery bypass graft(s) without angina pectoris; I70.202 Unspecified atherosclerosis of native arteries of extremities, left leg; I42.9 Cardiomyopathy, unspecified; I25.10 Atherosclerotic heart disease of native coronary artery without angina pectoris; I10 Essential (primary) hypertension; E78.5 Hyperlipidemia, unspecified; E11.9 Type 2 diabetes mellitus without complications; R29.810 Facial weakness; R13.10 Dysphagia, unspecified; R29.6 Repeated falls; Z95.5 Presence of coronary angioplasty implant and graft; Z85.118 Personal history of other malignant neoplasm of bronchus and lung; Z20.822 Contact with and (suspected) exposure to COVID-19; Z79.899 Other long term (current) drug therapy
CPT/HCPCS: 36415; 51701; 70450; 70551; 71045; 72141; 80048; 80053; 80307; 81001; 82550; 82948; 83605; 83735; 84443; 84484; 85025; 85027; 85610; 85730; 87040; 87426; 92610; 93005; 96365; 96366; 96375; 96376; 97162; 97530; 99285; A9270; C9803; G0378; J2060; J3475; U0003; U0005

== ENCOUNTER 2021-06-20 08:34 | Inpatient (IN) | payer OTHER, MEDICAID, SELFPAY ==
[2021-06-20] VITALS (11 sets, daily range): BP systolic 87–112; BP diastolic 45–71; PULSE 105–117; RESP 16–24; TEMP 35.9–37.1; O2SAT 92–100; BMI 19.5; BMI 20.7
--- NOTE | ~2021-06-20 | XR_ITS ---
EXAMINATION: XR chest 1V portable DATE: 06/21/2021 05:28 INDICATION: Sepsis TECHNIQUE: frontal view of the chest was obtained. COMPARISON: Chest radiograph dated 06/20/2021 FINDINGS: Right internal jugular central venous catheter with distal tip in the right atrium. Hyperexpansion of lungs consistent with emphysema better appreciated on prior CT. Calcified left apical nodule consist ent with old granulomatous disease. Opacities at the right cardiophrenic angle likely cyst related to the presence of a pericardial fat pad although differential includes atelectasis and pneumonia. The cardiomediastinal silhouette is normal. Median sternotomy wires and mediastinal surgical clips are se en, likely from prior coronary artery bypass grafting. Multiple gas-filled loops of bowel in the abdo men just within an ileus with no juana dilation to suggest obstruction. IMPRESSION: 1. Opacities at the right cardiophrenic angle most likely sludge with a pericardial fat pad although differential includes atelectasis or pneumonia. 2. Emphysema. 3. Multiple gas-filled loops of nondilated bowel suggesting ileus. Reviewed, dictated and finalized at location A. IMPRESSION: 1. Opacities at the right cardiophrenic angle most likely sludge with a pericar dial fat pad although differential includes atelectasis or pneumonia. 2. Emphysema. 3. Multiple gas-filled loops of nondilated bowel suggesting ileus.
--- NOTE | ~2021-06-20 | US_ITS ---
EXAMINATION: US renal BI DATE: 06/20/2021 11:06 INDICATION: Acute renal insufficiency. TECHNIQUE: Multiple ultrasound grayscale images of the kidneys were obtained. COMPARISON: CT abdomen and pelvis dated 04/28/2017 FINDINGS: The right kidney measures 11.7 x 5.2 x 4.8 cm. The left kidney measures 9.9 x 5.4 x 5.2 cm. The kidne ys demonstrate normal echogenicity. 2.7 cm anechoic cyst at the upper pole of the left kidney. There is an adjacent 2.9 cm splenule at the splenic hilum near the upper pole of the left kidney which appe ars unchanged since prior CT. There is no hydronephrosis in either kidney. No stones identified. The re is wall thickening the bladder which is partially decompressed around a Robles catheter which limit s evaluation. IMPRESSION: 1. 2.7 cm left renal cyst. Otherwise normal kidneys with no hydronephrosis. 2. Diffuse bladder wall thickening likely related to partially decompressed state but which could als o be seen with cystitis and would correlate with urinalysis. Reviewed, dictated and finalized at location A. IMPRESSION: 1. 2.7 cm left renal cyst. Otherwise normal kidneys with no hydronephrosis. 2. Diffuse bladder wall thickening likely related to partially decompressed sta te but which could also be seen with cystitis and would correlate with urinalys is.
--- NOTE | ~2021-06-20 | XR_ITS ---
EXAMINATION: XR abdomen obstructive series DATE: 06/21/2021 08:47 INDICATION: Abdominal pain TECHNIQUE: Upright and supine views of the abdomen were obtained. COMPARISON: None. FINDINGS: There are multiple gas-filled loops of bowel. No definitely dilated loops of bowel are iden tified. There is no free intraperitoneal gas. Gas and stool are seen to the level of the rectum. IMPRESSION: 1. Nonobstructive bowel gas pattern. Reviewed, dictated and finalized at location B.
--- NOTE | ~2021-06-20 | XR_ITS ---
EXAMINATION: XR chest 1V portable DATE: 06/20/2021 10:13 INDICATION: Central line placement. TECHNIQUE: A single frontal view of the chest was obtained. COMPARISON: Chest single view 06/02/2021, chest CT 03/28/2020 FINDINGS: There are lucencies in the lungs, consistent with emphysema. Calcified left lung nodules ar e consistent with old granulomatous disease. No pleural effusion or pneumothorax. Skinfolds overlie t he chest. The heart size is normal. Median sternotomy wires and mediastinal surgical clips are seen, likely from prior coronary artery bypass grafting. A right internal jugular central venous catheter i s seen with tip at the superior cavoatrial junction. IMPRESSION: 1. Central line tip at the superior cavoatrial junction. 2. Emphysema. Reviewed, dictated and finalized at location B.
--- NOTE | 2021-06-20 08:55 | WPDCNINT ---
Assessment and Plan Assessment and plan (1) Sepsis: Code(s): A41.9 - Sepsis, unspecified organism Status: Acute Assessment and Plan: patient met criteria for sepsis although source of infection is not clear this time he has elevated white count and was hypertensive on presentation chest x-ray was clear and UA is unremarkable UTI blood culture was drawn in the ER check procalcitonin level continue empiric antibiotics vancomycin and aztreonam patient was transiently on Levophed in the ER but currently off and his blood pressures improved with IV volume resuscitation lactic acid level was normal (2) Acute kidney injury: Code(s): N17.9 - Acute kidney failure, unspecified Status: Acute Assessment and Plan: patient presented with creatinine of 3.2 suspect prerenal versus renal Robles placed for accurate I&Os patient received more than 3 L of fluid and will continue cautious IV fluids due to history of congestive heart failure check CK level check renal ultrasound to rule out any obstruction and hydronephrosis check urine electrolytes consult nephrology check BMP at this time and monitor electrolytes (3) NSTEMI (non-ST elevated myocardial infarction): Code(s): I21.4 - Non-ST elevation (NSTEMI) myocardial infarction Status: Acute Assessment and Plan: patient has history of coronary disease status post CABG in the past. he had a myocardial perfusion imaging study done in 04/[address] changes and was abnormal for anterior septal, inferior lateral and apical ischemia elevated troponin on presentation. Patient is unable to provide any history and does not appear in any discomfort at this time he is currently on heparin infusion which will be continue continue aspirin p.r.n. nitroglycerin statin hold NASRA-inhibitor due to acute renal failure check echocardiogram consult cardiology although I do not expect any plan for angiogram since patient is now in renal failure (4) Coronary artery disease: Code(s): I25.10 - Atherosclerotic heart disease of [place] coronary artery without angina pectoris Status: Acute Assessment and Plan: see above (5) Dementia with behavioral disturbance: Qualifiers: Dementia type: unspecified type Qualified Code(s): F03.91 - Unspecified dementia with behavioral disturbance Code(s): F03.91 - Unspecified dementia with behavioral disturbance Status: Acute Assessment and Plan: continue Aricept and Remeron (6) Protein-energy malnutrition: Code(s): E46 - Unspecified protein-calorie malnutrition Status: Inactive Assessment and Plan: consult dietitian (7) Cerebral ischemia: Code(s): I67.82 - Cerebral ischemia Status: Inactive Assessment and Plan: history of CVA continue aspirin and statin he has history of facial droop MRI done last month was negative for any acute change and showed chronic white matter disease suggestive of chronic small-vessel ischemia (8) Diabetes mellitus: Code(s): E11.9 - Type 2 diabetes mellitus without complications Status: Inactive Assessment and Plan: sliding scale insulin (9) Cardiomyopathy: Code(s): I42.9 - Cardiomyopathy, unspecified Status: Inactive Assessment and Plan: history of cardiomyopathy and elevated BNP patient received 3.5 L of fluid conservative IV fluids at this time check echocardiogram (10) Dysphagia: Code(s): R13.10 - Dysphagia, unspecified Status: Inactive Assessment and Plan: patient has history of aphasia and is on mechanical soft diet and nursing will consult speech for evaluation (11) Facial droop: Code(s): R29.810 - Facial weakness Status: Acute Assessment and Plan: patient has history of facial droop from past CVA continue aspirin Additional Plan DVT prophylaxis - currently on hep
[2021-06-20 10:27] LABS: Glucose Point of Care 84 mg/dl (65-105)
[2021-06-20 10:58] LABS: INR 1.2; Prothrombin Time 14.9 Seconds (11.1-14.7)
[2021-06-20 11:00] LABS: Partial Thromboplastin Time 69.1 SECONDS (22.3-36.8)
[2021-06-20 11:08] LABS: Anion Gap 10 mmol/L (8-16); Blood Urea Nitrogen 73 mg/dL (9-20); Calcium 7.7 mg/dL (8.4-10.2); Carbon Dioxide 16 mmol/L (22-30); Chloride 112 mmol/L (98-107); Creatine Kinase 89 U/L (55-170); Estimated CRCL calculation 22 ml/min; Estimated Glomerular Filt Rate 30; Glucose 103 mg/dL (65-110); Potassium 4.4 mmol/L (3.4-5.0); Sodium 138 mmol/L (137-145)
[2021-06-20] MEDS: SODIUM CHLORIDE 0.9% IV 1,000 ML 75 ML IV CONT (11:10)
[2021-06-20] MEDS: HEPARIN SOD/D5W 100 UNITS/ML 25,000 UNITS/250 ML BAG 7 UNITS IV CONT (11:11)
[2021-06-20] MEDS: HEPARIN SODIUM 5,000 UNITS/ML VIAL 2500 UNITS IV PUSH (11:15)
[2021-06-20 11:30] LABS: Add Urine Microscopic? YES; Appearance Urine Cloudy (Clear); Bilirubin Urine 1+ (Negative); Blood Urine 3+ (Negative); Color Urine Red (Yellow); Glucose Urine UA Negative (Negative); Ketones Urine 1+ mg/dL (Negative); Leukocyte Esterase Ur Trace LEU/UL (Negative); Mucus Urine Rare /lpf; Nitrate Urine Negative (Negative); Protein Urine 2+ mg/dL (Negative); RBC Urine >75 /hpf (0-2); Specific Grav Ur 1.015 (1.001-1.035); Squamous Epithelial Cell Urine Occasional /hpf (Few); Urobilinogen Urine 0.2 mg/dL (<2.0); WBC Urine 31-50 /hpf
--- NOTE | 2021-06-20 11:30 | PM.CNCAR ---
Assessment and Plan Additional Plan this is an 80-year-old man with a history of coronary disease bypass grafting about 9 years ago cording to the chart. He comes into the hospital with altered mental status, agitation which according to the family is not his baseline. He does have a history of significant dementia. They are concerned that part of this issue may be the recent withdrawal of his medication. Cardiac-bacon we are consulted to see him because his troponin is elevated. We do not have the levels here at [facility] yet but they are on a different assay at [facility] and were somewhat elevated and declining. There is no clinical evidence of an acute infarction. I do not have any plans to conduct an ischemia workup in this situation at this time since he is elderly combative and demented and also DNR he is not a candidate for angiogram. If he is mental status does improve we would continue to treat his coronary disease medically in a conservative fashion. Nakul Aden MD [facility] History of Present Illness History of Present Illness Consult date/time: 06/20/21 11:30 Consult reason: Other ( elevated troponin) Reason For Visit: HypotensionAcute Renal Failure, NSTEMI Narrative: this is an 80-year-old man who is known to 1 of my partners, Dr. Myles with a history of coronary artery disease. I am seeing at the request of the nursing clinical director because of elevated troponin level that was identified in a referring hospital's emergency room. The patient is incoherent and babbling and not able to provide any direct history. Apparently he has a history of dementia and sees physicians here at [facility] as well as a primary care elsewhere as well as physicians at the [facility]. His daughters who I met in the room provide the history that recently his physicians at the [facility] stopped his medications for dementia for reasons that are not clear to them or me. In any event in the last 6 couple days or so there has been a significant decline in his mental status he apparently is poorly responsive incoherent has been residing at a skilled care facility. He was found to be hypotensive and was sent to the emergency room over at [facility]. Troponin levels were sampled as part of that evaluation for reasons that are not clear. He also had an his laboratory data evidence of dehydration with significant prerenal azotemia. He was given S3 L of IV crystalloid is no longer significantly hypotensive. He is in the ICU is agitated and is not able to provide any additional history. According to our records he has a history of coronary artery disease and once again follows with my partner for a long time. He also has history of hypertension dyslipidemia carotid artery disease and lung cancer which was treated with a right lower lobe resection back in 2017. He was seen in our office last on 05/01/2021 by the nurse practitioner to discuss the results of a recent nuclear stress test that did show some anteroapical ischemia. There isn't anything in the chart that indicates why the test was performed. He had medical therapy recommended for this with adding isosorbide to his medical regimen at a low dosage. The chart indicates that his coronary bypass was done in 2012. The details of the graft and Gregory Rivers are not included in the chart that I am reviewing at the time I dictate this note. He is in sinus rhythm / sinus tachycardia with a intraventricular conduction delay. Troponin levels have been ordered at [facility] they are pending at the time of this dictation. 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
--- NOTE | 2021-06-20 11:36 | PCSTNOTE ---
Therapist contacted nursing about completing BSS and was told that patient was combative. Therapist attempted again at 11:30 and patient was again combative and refusing oral presentations. Therapy will attmpt later if patient is more able to participate.
[2021-06-20 11:51] LABS: Procalcitonin 0.2 ng/mL
[2021-06-20 11:56] LABS: Glucose Point of Care 97 mg/dl (65-105)
[2021-06-20 12:04] LABS: Creatinine Urine 115.7 mg/dL
[2021-06-20 12:07] LABS: Sodium Urine Random 36 meq/L
--- NOTE | 2021-06-20 12:56 | PC.NURSE ---
This patient, Alec Winters, was admitted to Intensive Care Unit-8. Patient/family oriented to hospital policies and general routines including ID bracelet, bed and alarms, visiting hours, pain management, procedures, bathroom and other care routines, personal items, smoking policy, room service/diet, and visiting hours. Information on how to activate the Rapid Response Team has been discussed. Patient/Family are encouraged to report perceived risks to care and to ask questions if they do not understand what they are told or what they should do.
[2021-06-20] MEDS: SODIUM BICARBONATE 8.4% 100 MEQ in DEXTROSE 5% 1,000 ML 1,000 ML IV CONT (13:02)
--- NOTE | 2021-06-20 13:11 | PC.NURSE ---
Attempted to insert NG tube without success. Patient became distressed, and combative. NG tube curled with each attempt. Dr. Llamas notified, and he advised a plan will be made to reassess tomorrow with possible insertion under fluoroscopy.
--- NOTE | 2021-06-20 13:20 | PM.IMHP ---
H&P: HPI History of Present Illness Date/Time: 06/20/21 13:20 Chief Complaint: Shortness of breath Narrative: 80yo male with history of dementia, CAD status post CABG, failure to thrive and emphysema who was sent outside ED from the alf for shortness of breath and found to have low blood pressure. Patient is alert but confused and unable to provide history. Family is in the room and provide some of the history. The remainder of this history is obtained from the chart. Patient has had steady decline over the past few weeks. He has coronary disease and had a recent stress test in the end of March 2021 that showed evidence of ischemia. In a follow-up cardiology note on 05/01/21, patient was started on Imdur at that time for the abnormal stress test. Family states patient was on medications for his dementia including psychiatric medications that were adjusted in April. About a month later, patient fell in the parking lot of his assisted living facility and was brought to [facility] emergency room for altered mental status, agitation and hallucinations. The ED note states patient recently had his Seroquel adjusted prior to admission. MR brain was negative for acute process. Speech recommended pureed diet. He was discharged to [facility] on 06/07/21. Family states patient initially bedbound and max assist but since moving to the [place], he is now minimal assist to the wheelchair. He has been refusing food and medications. He does drink without difficulty. He has lost weight but not quatified. he is a DNR and has in his living will that he does not want a feeding tube. Patient in the early childhood education coordinator hours was noted to have low blood pressure and was brought to [facility] ER. BP dropped to 58/46. He was started on IV fluids and ulitmately placed on Levophed. UA was not consistent with UTI. Cr 3.3, BUN 83, Na 127,potassium 5.3, proBNP 5957, WBC 16K and normal lactic. EKG showing ST deviation and moderate T wave inversion. CXR clear. hs Trop 1984 (nml<76). Central line placed and patient transferred to [facility] ICU for further care. He was not on Levophed on arrival but was on Heparin. 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 Atherosclerosis of coronary artery bypass graft with unstable angina pectoris Atherosclerosis of coronary artery bypass graft(s) without angina pectoris Atherosclerosis of [place] artery of left lower extremity Cardiomyopathy Cerebral ischemia Depression Diabetes mellitus Dysphagia Emphysema (subcutaneous) (surgical) resulting from a procedure Essential hypertension Failure to thrive Hyperlipidemia Malignant neoplasm of lower lobe, unspecified bronchus or lung Protein-energy malnutrition Surgical History Surgical History History of lobectomy of lung Hx of CABG Family History Family History Mother Family history of congenital heart disease Cerebrovascular accident Father Family history of chronic obstructive pulmonary disease Family history of lung cancer Sibling Family history of heart disease in male family member before age 55 Other Asthma Diabetes mellitus Social History Social History Social History: Lives in a alf. Quit tobacco. No alcohol use. DNR. Smoking packs per day: 1 Smoking cigarettes per day: 20.0 Years smoked: 50 Smoking pack-years: 50.00 Smoking status: Former smoker Second hand tobacco smoke exposure: No Smoking end date: 02/18/08 Alcohol intake: never Drinks per week: 1 Alcohol use details: mixed drink
--- NOTE | 2021-06-20 14:30 | PM.CNNEP ---
Assessment and Plan Additional Plan 1. Alec has acute kidney injury. This is on top of normal kidneys. His blood pressure was low in the emergency room. he is also somewhat dehydrated because he has been eating or drinking at the nursing facility very well. He has pyuria. He had a urine culture before which was negative. Another culture has been taken here. So dehydration hypotension and possible infection are probably the reasons for the kidney failure. Other causes such as obstruction or possible. Will check a renal ultrasound. Rhabdomyolysis. We will check a CPK. Interstitial nephritis is possible as well so because he was recently in the hospital. However he does not have a rash or fever. Glomerulonephritis is always possible but not likely in this clinical scenario. At this point will get a renal ultrasound coming your electrolytes, CPK, and follow his creatinine and urine output. 2. The patient has metabolic Acidosis. His anion gap is only 10. Most likely this is related to poor ammonia production with his kidney disease. The could be a component of dilutional acidosis as well as he got fluids in the ER. Will follow this along. He may need some bicarbonate supplementation. 3. His troponins are high. The last [address] Aden is on the case. 4. The patient has diabetes. He is getting Accu-Cheks and sliding-scale insulin per hospitalist. 5. The patient has hypertension. These meds are on hold. 6. Infection cultures are pending. He is on aztreonam plus vancomycin. History of Present Illness Reason for Consult Consult date: 06/20/21 Chief Complaint Chief complaint: HypotensionAcute Renal Failure, NSTEMI History of Present Illness Narrative: Alec is a very pleasant but confused and somewhat agitated gentleman who has multiple medical problems including Alzheimer's dementia, coronary artery disease, hyperlipidemia, hypertension, depression, diabetes, COPD, cardiomyopathy, peripheral vascular disease. The patient was in [facility]. He was confused and very ill. He had change in mental status agitation and hallucination. He had x-rays which were negative he eventually improved and up to go to [facility] for [facility]. They are He seem to improve gradually as far as mental status went. He was at least able to discuss things although he was still confused. He refused to eat food however he would drink some food in they were giving him some supplements. In the last couple of days he became more confused and more agitated so he came to the emergency room here. He has also been short of breath. He was evaluated in the emergency room and found to be hypotensive. They gave him lots of IV fluids overnight and now is getting some peripheral fluids now. His creatinine has been normal before this. Today however his creatinine was found to be 2.1 so renal consultation was requested the patient can't really answer any questions. No history of bloody urine or kidney infections. Review of Systems Review of Systems: ROS unobtainable: Yes unobtainable due to medical condition ENT: Reports system reviewed and no additional complaints, except as documented Endocrine: Endocrine: Reports no additional endocrine complaints PMFSH Past Medical History Medical History Adverse effect due to correct medicinal substance, properly given Alzheimer's dementia 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 Atherosclerosis of coronary artery bypass graft with unstable angina pectoris Atherosclerosis of coronary artery bypass graft(s) without angina pectoris Atherosclerosis of [place] artery of left lower extremity Cardiomyopathy Cerebral ischemia Depression Diabetes mellitus Dysphagia Emphysema (subcutaneous) (surgical) resulting from a procedure Essential hypertension Failure to thrive Hyperlipid
[2021-06-20] MEDS: AZTREONAM 1 GM in DEXTROSE 5% IN WATER 50 ML 100 ML IVPB ×2 (15:17→22:15)
[2021-06-20] MEDS: CENTRAL LINE FLUSH 10 ML IV PUSH ×3 (15:18→22:35)
[2021-06-20 16:05] LABS: Glucose Point of Care 167 mg/dl (65-105)
[2021-06-20 16:17] LABS: Creatine Kinase 131 U/L (55-170)
[2021-06-20] MEDS: ALBUMIN HUMAN 5% 25 GM/500 ML BTL IV CONT (20:36)
[2021-06-20 23:46] LABS: Glucose Point of Care 221 mg/dl (65-105)
[2021-06-20] MEDS: INSULIN ASPART (*BKC) 100 UNITS/ML SUB-Q (23:47)
[2021-06-21] VITALS (12 sets, daily range): BP systolic 90–108; BP diastolic 49–95; PULSE 64–112; RESP 16–28; TEMP 36.4–37.1; O2SAT 93–100
--- NOTE | 2021-06-21 | ECHO_ITS ---
Patient Info Name: Alec Winters Age: 80 years : 1940 Gender: Male Ht: 70 in Wt: 136 lbs BSA: 1.74 m2 HR: 62 bpm BP: 82 / 52 mmHg Heart Rhythm: Sinus Rhythm Technical Quality: Fair Exam Date: 06/21/2021 7:39 AM Exam Location: [facility] Pulmonary Patient Status: Inpatient Admit Date: 06/21/2021 Staff Ordering Physician: Russ Llamas MD Adjunct Psychology Instructor: lAva Hunter RDCS Attending Provider: Eliseo Jackson DO Exam Type: CA echo doppler color flow Study Info Indications - NSTEMI Complete two-dimensional, color flow and Doppler transthoracic echocardiogram is performed. Summary 1. Complete two-dimensional, color flow and Doppler transthoracic echocardiogram is performed. 2. Left ventricular chamber dimension is mildly enlarged. 3. Left ventricular systolic function is normal, estimated at 55-60%. 4. There is mildly increased left ventricular wall thickness. 5. The left ventricular diastolic function is grade I diastolic dysfunction. 6. Left atrial chamber dimension is mildly enlarged. 7. There is mild mitral valve regurgitation. 8. There is mild tricuspid valve regurgitation. Left Ventricle Left ventricular chamber dimension is mildly enlarged. Left ventricular systolic function is normal, estimated at 55-60%. There is mildly increased left ventricular wall thickness. The left ventricular diastolic function is grade I diastolic dysfunction. Right Ventricle Right ventricular chamber dimension is normal. Right ventricular systolic function is normal. Left Atria Left atrial chamber dimension is mildly enlarged. Right Atria Right atrial chamber dimension is normal. Atrial Septum Intact interatrial septum visualized by color flow imaging. Aortic Valve The aortic valve is trileaflet. There is mild aortic valve sclerosis. There is no aortic valve stenosis. There is trace aortic valve regurgitation. Pulmonic Valve The pulmonic valve is not well visualized. There is no pulmonic valve stenosis. Mitral Valve The mitral valve has thickened leaflets. There is no mitral valve stenosis. There is mild mitral valve regurgitation. Tricuspid Valve The tricuspid valve leaflets are normal. There is no significant tricuspid valve stenosis. There is mild tricuspid valve regurgitation. No pulmonary hypertension, estimated pulmonary arterial systolic pressure is 32 mmHg. Pericardium/Pleural The pericardium appears normal. There is no pericardial effusion. Aorta The aortic root size at the sinus of Valsalva is normal. Left Ventricular Outflow Tract Name Value Normal LVOT 2D LVOT Diameter 2.0 cm LVOT Doppler LVOT Peak Gradient 2 mmHg LVOT Mean Gradient 1 mmHg LVOT VTI 14 cm LVOT VTI/AV VTI Ratio 0.5 LVOT Stroke Volume 45 ml LVOT CO 2.2 l/min LVOT CI 1.3 l/min/m2 Pulmonic Valve Name
[2021-06-21] MEDS: SODIUM BICARBONATE 8.4% 100 MEQ in DEXTROSE 5% 1,000 ML 1,000 ML IV CONT (00:25)
[2021-06-21] MEDS: AZTREONAM 1 GM in DEXTROSE 5% IN WATER 50 ML 100 ML IVPB ×2 (05:27→14:34)
[2021-06-21] MEDS: CENTRAL LINE FLUSH 10 ML IV PUSH ×2 (05:50→14:34)
[2021-06-21 06:03] LABS: INR 1.3
[2021-06-21 06:03] LABS: Glucose Point of Care 168 mg/dl (65-105)
[2021-06-21 06:04] LABS: Partial Thromboplastin Time 33.6 SECONDS (22.3-36.8)
[2021-06-21 06:08] LABS: Alanine Aminotransferase 13 U/L (4-50); Albumin Level 2.8 g/dL (3.5-5.1); Alkaline Phosphatase 73 U/L (38-126); Anion Gap 6 mmol/L (8-16); Aspartate Amino Transferase 26 U/L (17-59); Bilirubin,Total 0.3 mg/dL (0.2-1.3); Blood Urea Nitrogen 52 mg/dL (9-20); Calcium 7.6 mg/dL (8.4-10.2); Carbon Dioxide 23 mmol/L (22-30); Chloride 110 mmol/L (98-107); Estimated CRCL calculation 44 ml/min; Estimated Glomerular Filt Rate > 60; Glucose 176 mg/dL (65-110); Magnesium 1.4 mg/dL (1.6-2.3); Phosphorus 2.6 mg/dL (2.5-4.5); Potassium 3.5 mmol/L (3.4-5.0); Sodium 139 mmol/L (137-145)
[2021-06-21] MEDS: MAGNESIUM SULF 2 GM/WATER 50ML 2 GM/50 ML BAG IVPB (06:52)
--- NOTE | 2021-06-21 08:38 | PM.IMPN ---
Progress Note: A&P Assessment and Plan (1) Sepsis: Code(s): A41.9 - Sepsis, unspecified organism Status: Acute Assessment and Plan: Patient met criteria for septic shock with HoTN, leukocytosis, tachypnea with hypoxia. UA unremarkable at the OSH and here mostly blood (probably related to Robles trauma). CXR here again was seen as clear. UCx pending. BCx collected at OSH. Procalcitonin level 0.2. Continue empiric antibiotics with vancomycin and aztreonam. Hospice being considered so will continue abx until a final decision has been made. (2) NSTEMI (non-ST elevated myocardial infarction): Code(s): I21.4 - Non-ST elevation (NSTEMI) myocardial infarction Status: Acute Assessment and Plan: Patient has history of CAD s/p CABG and had a recent stress test in [facility] showing ischemic changes treated medically. Trop elevated on admission with EKG changes (when compared to May EKG). Trop 2.7 here. Cardiology consulted but no plans for further ischemic workup since patient is DNR and otherwise not much else that can be offered. Plan for medical management (3) Acute kidney injury: Code(s): N17.9 - Acute kidney failure, unspecified Status: Acute Assessment and Plan: Creatinine of 3.2 and BUN 83 on admission. Patient has a normal baseline creatinine. Related to dehydration from poor oral intake. Renal ultrasound reviewed. Blood noted in the Robles felt related to Robles trauma and has clear. [place] acidosis noted and his fluids changed to bicarb. Renal function close to normal. Given his history of heart disease, will stop IV fluids. The family wants hospice, then would resume pureed diet. If not then he would need maintenance fluid. (4) Coronary artery disease: Code(s): I25.10 - Atherosclerotic heart disease of [place] coronary artery without angina pectoris Status: Acute Assessment and Plan: As above. Plan to resume medical management once patient's swallowing ability can be assessed. (5) Dysphagia: Code(s): R13.10 - Dysphagia, unspecified Status: Inactive Assessment and Plan: Patient has history of aphasia and is on pureed diet and thin liquids from the bedside swallow evaluation on 06/04. Patient has been refusing to eat but unclear if related to dementia or from issues with worsening dysphagia. CXR on admission was clear so aspiration PNA felt less likely.NGT unable to be placed due to combativeness. Hospice being considered. Will hold on placing a NG tube at this time. (6) Dementia with behavioral disturbance: Qualifiers: Dementia type: unspecified type Qualified Code(s): F03.91 - Unspecified dementia with behavioral disturbance Code(s): F03.91 - Unspecified dementia with behavioral disturbance Status: Acute Assessment and Plan: Patient has known dementia with behavioral disturbance and is on Aricept, Seroquel and Remeron. Facial droop noted on exam but this is chronic. MR brain 06/02 showing chronic disease but no acute findings. Home medications on hold due to his dysphagia. (7) Protein-energy malnutrition: Code(s): E46 - Unspecified protein-calorie malnutrition Status: Inactive Assessment and Plan: As above. Family leaning toward hospice. Will hold on replacing NG tube at this time. (8) Diabetes mellitus: Code(s): E11.9 - Type 2 diabetes mellitus without complications Status: Inactive Assessment and Plan: No A1c in the chart. On metformin only. Glucose stable. Continue AccuCheks covering with sliding scale. Hypoglycemia protocol available as needed. (9) Cardiomyopathy: Code(s): I42.9 - Cardiomyopathy, unspecified Status: Inactive Assessment and Plan: Patient has a history of cardiomyopathy. proBNP was elevated on admission to 5957 (Nml <450). He did receive 3.5 L as IV fluid resuscitation. No old Echo in the chart so EF un
[2021-06-21] MEDS: UMECLIDINIUM/VILANTEROL 62.5-25 MCG ELLIPTA 1 PUFF INHALATION (08:41)
--- NOTE | 2021-06-21 08:41 | PC.NURSE ---
discussed patient care with daughter Iman over the phone. Told her how uncooperative patient is with general care and states for us to just leave him alone and don't mess with him; we would attempt feeding tube placement again today but he was very combative with trying that yesterday. Daughter stated she did not want us to put in a feeding tube and she wished to pursue hospice. notified Dr. Bowers who also spoke with Iman over the phone and put in for hospice referral. Care coordination notified.
[2021-06-21] MEDS: ENOXAPARIN 40 MG/0.4 ML SYRINGE SUB-Q (08:54)
[2021-06-21 09:13] LABS: Hemoglobin A1C 6.6 % (<5.7)
[2021-06-21 12:22] LABS: Glucose Point of Care 156 mg/dl (65-105)
--- NOTE | 2021-06-21 12:26 | WPDINTPN ---
Progress Note: A&P Assessment and Plan (1) Sepsis: Code(s): A41.9 - Sepsis, unspecified organism Status: Acute Assessment and Plan: patient met criteria for sepsis although source of infection is not clear this time he has elevated white count and was hypotensive on presentation chest x-ray was clear and UA with possible UTI 06/20/2021: Blood cultures at outside hospital pending 06/20/2021: Urine culture pending -procalcitonin is very low to suggest infection continue empiric antibiotics vancomycin and aztreonam (06/20/21) patient was transiently on Levophed in the ER but currently off and his blood pressures improved with IV volume resuscitation lactic acid level was normal (2) Acute kidney injury: Code(s): N17.9 - Acute kidney failure, unspecified Status: Acute Assessment and Plan: patient presented with creatinine of 3.2 at the outside hospital, creatinine has improved to 1.0 this morning on 06/21 Likely prerenal, Continue Robles for accurate I&Os - patient received more than 3 L of fluid and will continue cautious IV fluids due to history of congestive heart failure Levels were within normal low Renal ultrasound:2.7 cm left renal cyst. Otherwise normal kidneys with no hydronephrosis. 2. Diffuse bladder wall thickening likely related to partially decompressed state but which could also be seen with cystitis and would correlate with urinalysis. Appreciate nephrology following the patient -creatinine has normalized, continue to monitor urine output, renal function and electrolytes (3) NSTEMI (non-ST elevated myocardial infarction): Code(s): I21.4 - Non-ST elevation (NSTEMI) myocardial infarction Status: Acute Assessment and Plan: patient has history of coronary disease status post CABG in the past. he had a myocardial perfusion imaging study done in 04/[address] changes and was abnormal for anterior septal, inferior lateral and apical ischemia elevated troponin on presentation. Patient is unable to provide any history and does not appear in any discomfort at this time Heparin has been discontinued, continue medical management per Cardiology S patient is a DNR/DNI continue aspirin p.r.n. nitroglycerin statin hold NASRA-inhibitor due to acute renal failure and hypotension Echocardiogram has been done, pending results Appreciate cardiology evaluation and recommendations (4) Coronary artery disease: Code(s): I25.10 - Atherosclerotic heart disease of [place] coronary artery without angina pectoris Status: Acute Assessment and Plan: see above (5) Dementia with behavioral disturbance: Qualifiers: Dementia type: unspecified type Qualified Code(s): F03.91 - Unspecified dementia with behavioral disturbance Code(s): F03.91 - Unspecified dementia with behavioral disturbance Status: Acute Assessment and Plan: continue Aricept and Remeron (6) Protein-energy malnutrition: Code(s): E46 - Unspecified protein-calorie malnutrition Status: Inactive Assessment and Plan: consult dietitian (7) Cerebral ischemia: Code(s): I67.82 - Cerebral ischemia Status: Inactive Assessment and Plan: history of CVA continue aspirin and statin he has history of facial droop MRI done last month was negative for any acute change and showed chronic white matter disease suggestive of chronic small-vessel ischemia (8) Diabetes mellitus: Code(s): E11.9 - Type 2 diabetes mellitus without complications Status: Inactive Assessment and Plan: sliding scale insulin (9) Cardiomyopathy: Code(s): I42.9 - Cardiomyopathy, unspecified Status: Inactive Assessment and Plan: history of cardiomyopathy and elevated BNP patient received 3.5 L of fluid conservative IV fluids at this time (10) Dysphagia: Code(s): R13.10 - Dysphagia, unspecified Status:
--- NOTE | 2021-06-21 12:52 | PCFNICU ---
ICU Rounding Note: Pt current nutrition is NPO. Last recorded weight is 61.3 kg, down from 62 kg on admit. Bowel Motility: No BM to report. Labs Reviewed:Alb 2.8,BUN 52, Glu 176 Meds Noted:Remeron, NovoLog, Heparin, Vancomycin, Lovenox. Skin:WNL Additional Notes: Patient currently NPO. Hospice referral. Will continue to monitor plan of care. Following daily in ICU rounds. Monitor for speech eval and rec, diet orders, wt, labs. Follow up in 3 days.
[2021-06-21] MEDS: LORazepam INJ (*CRX) 2 MG/ML VIAL 1 MG IV PUSH ×2 (16:10→20:18)
--- NOTE | 2021-06-21 16:19 | PCSTNOTE ---
Patient not seen this date as nursing continues to report patient is not cooperative and is combative when directly addressed by staff.
[2021-06-22 08:00] VITALS: BP 120/63; PULSE 89; RESP 18; TEMP 36.1; O2SAT 90
--- NOTE | 2021-06-22 09:13 | PCSTNOTE ---
Discharge from Speech Therapy this date due to patient being placed on Hospice Care. A new order may be placed should physician decide to pursue.
--- NOTE | 2021-06-22 11:46 | PM.DS ---
DS: Admitting Diagnosis Discharge Date 06/22/21 Admitting Diagnosis Shortness of breath DS: Discharge Diagnosis Discharge Diagnosis (1) Sepsis: Code(s): A41.9 - Sepsis, unspecified organism Status: Acute Assessment and Plan: Patient met criteria for septic shock with HoTN, leukocytosis, tachypnea with hypoxia. UA unremarkable at the OSH and here mostly blood (probably related to [place] trauma). CXR was clear. UCx negative. Procalcitonin level 0.2. He was treated with empiric antibiotics with vancomycin and aztreonam. Hospice was being considered. Family decided on hospice so antibiotics were stopped. (2) NSTEMI (non-ST elevated myocardial infarction): Code(s): I21.4 - Non-ST elevation (NSTEMI) myocardial infarction Status: Acute Assessment and Plan: Patient has history of CAD s/p CABG and had a recent stress test in March showing ischemic changes treated medically. Trop elevated on admission with EKG changes (when compared to May EKG). Trop 2.7 here. Cardiology consulted but no plans for further ischemic workup since patient is DNR and otherwise not much else that can be offered. (3) Acute kidney injury: Code(s): N17.9 - Acute kidney failure, unspecified Status: Acute Assessment and Plan: Creatinine of 3.2 and BUN 83 on admission. Patient has a normal baseline creatinine. Related to dehydration from poor oral intake. Renal ultrasound showed renal cyst otherwise normal. Blood noted in the [place] felt related to [place] trauma and has clear. [place] acidosis noted and his fluids changed to bicarb. Renal function improved and IV fluids stopped given his history of heart disease. The family requesting hospice. (4) Coronary artery disease: Code(s): I25.10 - Atherosclerotic heart disease of [place] coronary artery without angina pectoris Status: Acute Assessment and Plan: As above. (5) Dysphagia: Code(s): R13.10 - Dysphagia, unspecified Status: Inactive Assessment and Plan: Patient has history of dysphasia and is on pureed diet and thin liquids from the bedside swallow evaluation on 06/04. Patient has been refusing to eat but unclear if related to dementia or from issues with worsening dysphagia. CXR on admission. NGT unable to be placed due to combativeness. Once hospice decided, pureed diet resumed but patient refusing to eat. (6) Dementia with behavioral disturbance: Qualifiers: Dementia type: unspecified type Qualified Code(s): F03.91 - Unspecified dementia with behavioral disturbance Code(s): F03.91 - Unspecified dementia with behavioral disturbance Status: Acute Assessment and Plan: Patient has known dementia with behavioral disturbance and is on Aricept, Seroquel and Remeron. Facial droop noted on exam but this is chronic. MR brain 06/02 showing chronic disease but no acute findings. Home medications were resumed but he is refusing. (7) Protein-energy malnutrition: Code(s): E46 - Unspecified protein-calorie malnutrition Status: Inactive Assessment and Plan: As above. (8) Diabetes mellitus: Code(s): E11.9 - Type 2 diabetes mellitus without complications Status: Inactive Assessment and Plan: No A1c in the chart. On metformin only. Glucose stable. Monitored with AccuCheks covering with sliding scale. (9) Cardiomyopathy: Code(s): I42.9 - Cardiomyopathy, unspecified Status: Inactive Assessment and Plan: Patient has a history of cardiomyopathy. proBNP was elevated on admission to 5957 (Nml <450). He did receive 3.5 L as IV fluid resuscitation. Echo hsowing EF 60% with Grade I diastolic dysfunction. DS: Summary Hospital Course Reason for hospitalization: 80yo male with history of dementia, CAD status post CABG, failure to thrive and emphysema who was sent outside ED from the skilled nursing for shortness of
[2021-06-22] MEDS: MORPHINE SULFATE (*CRX) 2 MG/ML INJ IV PUSH (12:00)
[2021-06-22 12:28] LABS: EDCOVIDSCREEN Negative (Negative)
[2021-06-22 13:52] VITALS: BP 123/76; PULSE 116; RESP 22; TEMP 36.9; O2SAT 99
--- NOTE | 2021-06-22 13:53 | PC.NURSE ---
7506- Patient discharged to [facility] , report called to nurse Ivette. IV dc'd , vitals stable , CONCEPCIÓN Valerio at bedside with patient .
== END 2021-06-22 13:47 | disposition hospice, inpatient (51) | DRG 871 ==
PROVIDERS: Internal Medicine; Internal Medicine Nephrology; Admitting Provider Internal Medicine; PCP Family Medicine; Visit Provider Internal Medicine
DX: A41.9 Sepsis, unspecified organism (principal); R65.21 Severe sepsis with septic shock; I21.4 Non-ST elevation (NSTEMI) myocardial infarction; N17.9 Acute kidney failure, unspecified; E46 Unspecified protein-calorie malnutrition; I42.9 Cardiomyopathy, unspecified; Z68.1 Body mass index [BMI] 19.9 or less, adult; E87.2 Acidosis; S37.39XA Other injury of urethra, initial encounter; Z20.822 Contact with and (suspected) exposure to COVID-19; I25.10 Atherosclerotic heart disease of native coronary artery without angina pectoris; R13.10 Dysphagia, unspecified; I11.0 Hypertensive heart disease with heart failure; I50.9 Heart failure, unspecified; Z66 Do not resuscitate; E11.9 Type 2 diabetes mellitus without complications; R62.7 Adult failure to thrive; J43.9 Emphysema, unspecified; E78.5 Hyperlipidemia, unspecified; G30.9 Alzheimer's disease, unspecified; F02.80 Dementia in other diseases classified elsewhere, unspecified severity, without behavioral disturbance, psychotic disturbance, mood disturbance, and anxiety; I69.392 Facial weakness following cerebral infarction; Z95.1 Presence of aortocoronary bypass graft; Z87.891 Personal history of nicotine dependence; Z79.82 Long term (current) use of aspirin
CPT/HCPCS: 36415; 71045; 74019; 76775; 80048; 80053; 81001; 82533; 82550; 82570; 82948; 83036; 83735; 84100; 84145; 84300; 84484; 85610; 85730; 87086; 87426; 93306; 94640; 96365; 96366; 96367; 96368; 96372; 96375; A9270; C9803; G0378; J1644; J1650; J1815; J2060; J2270; J3370; J3475; J7030; J7070; P9045